=== PATIENT | male | born 1955 | race Caucasian/White ===

== ENCOUNTER 2019-07-18 18:07 | Inpatient (IN) | payer OTHER ==
[~2019-07-18] VITALS: Ht 185.4 cm; Wt 78.6 kg
[2019-07-18 18:08] VITALS: BP 106/67
[2019-07-18 18:41] LABS: HEMATOCRIT 35.2 % (42.0-52.0); HEMOGLOBIN 11.8 gm/dL (14.0-18.0); MCH 33.4 pg (26.0-34.0); MCHC 33.5 g/dL (28.0-37.0); MCV 99.7 fL (80.0-100.0); PLATELET COUNT 291 thou/uL (150-400); RBC 3.53 mil/uL (4.50-6.00); RDW 14.4 % (10.5-14.5)
[2019-07-18 18:54] LABS: ANION GAP 7 mmol/L (7-16); BUN 23 mg/dL (7-18); CALCIUM 9.6 mg/dL (8.5-10.1); CHLORIDE 102 mmol/L (98-107); CO2 29 mmol/L (21-32); CREATININE 1.2 mg/dL (0.7-1.3); GLUCOSE 124 mg/dL (74-106); POTASSIUM 3.7 mmol/L (3.5-5.1); SODIUM 138 mmol/L (136-145)
[2019-07-18] MEDS ORDERED: NEURONTIN 300M300 M2 PO (18:59)
[2019-07-18 19:00] LABS: ALBUMIN 3.3 g/dL (3.4-5.0); SALICYLATE < 2.8 mg/dL (2.8-20.0); SGOT 35 U/L (15-37); SGPT 30 U/L (30-65); TOTAL BILIRUBIN 0.3 mg/dL (<0.1-1.0); TOTAL PROTEIN 6.7 g/dL (6.4-8.2)
[2019-07-18] MEDS ORDERED: MAGNESIUM400 MG PO (19:00)
[2019-07-18] MEDS ORDERED: SUPER THERAVIT1 EACH PO (19:00)
[2019-07-18] MEDS ORDERED: DIVALPROEX SOD500 MG PO (19:00)
[2019-07-18] MEDS ORDERED: XARELTO20 MG PO (19:01)
[2019-07-18] MEDS ORDERED: BACLOFEN 10MG T10 MG PO (19:01)
[2019-07-18] MEDS ORDERED: CARDIZEM SR 60M60 MG PO (19:01)
[2019-07-18] MEDS ORDERED: TAMSULOSIN HCL0.4 MG PO (19:01)
[2019-07-18] MEDS ORDERED: GEODON40 MG PO (19:03)
[2019-07-18 19:18] LABS: URINE BILIRUBIN NEGATIVE (Negative); URINE BLOOD NEGATIVE (Negative); URINE CLARITY CLEAR; URINE COLOR YELLOW; URINE GLUCOSE-RANDOM* NEGATIVE (Negative); URINE KETONES TRACE (Negative); URINE LEUKOCYTES-REFLEX NEGATIVE (Negative); URINE NITRITE-REFLEX NEGATIVE (Negative); URINE PROTEIN (DIPSTICK) NEGATIVE (Negative); URINE UROBILINOGEN 0.2 E.U./dl (0.2-1.0)
[2019-07-18 19:25] LABS: AMP/METHAMP Negative (Negative); BARBITURATES Negative (Negative); BENZODIAZEPINES Negative (Negative); COCAINE Negative (Negative); METHADONE Negative (Negative); OPIATES Negative (Negative); PCP Negative (Negative)
[2019-07-18 19:33] LABS: ABSOLUTE NEUTROPHILS 3.4 thou/uL (1.4-8.2); ANISOCYTOSIS 1+
[2019-07-18 19:58] VITALS: BP 95/58
[2019-07-18] MEDS ORDERED: ARTIFICIAL TEAR15 M2 EA. EYE (20:50)
[2019-07-18] MEDS ORDERED: DIVALPROEX SOD250 MG PO (20:51)
[2019-07-18] MEDS ORDERED: GEODON20 MG PO (20:54)
[2019-07-18] MEDS ORDERED: TYLENOL325 MG PO (20:55)
[2019-07-18] MEDS ORDERED: NASAL SPRAY88 ML NASAL (20:56)
[2019-07-18] MEDS ORDERED: ZYPREXA 10 MG T10 MG PO (20:57)
--- NOTE | 2019-07-18 22:55 | NUR ---
Patient admitted from [facility] ED where he was medically cleared for admission to [facility] unit. Patient arrived to unit from ED by wheelchair. Patient agitated, confused, frustrated, irritable. Patient presents with suspicious appearance. Alert and oriented to person only. Confused and forgetful. Patient repetitive, asking the same questions. Patient demanding for a TV to be delivered to his room. Shown the dayroom where he is able to watch TV. States that he needs one in his room "now!". Patient stating that he will not have a roomate or he will move. Making multiple complaints about his room. Required re-direction several times on current location. Patient then stood at the nurses station door, blocking staff from entering and exiting nurses station. Very difficult to re-direct and stood there for some time. Patient then started to fixate on his personal belongings. Patient did arrive with 2 very large clear trash bags, one large suitcase and one round laundry basket with shoes. Patient demanding all his belongings. Nurse explained several times that personal belongings need to be inventoried before he is allowed to have them. Patient argumentative. Patient states that he will be living here for 1 year, "like I did that other place". Patient not able to remember current location but did remember nurse by first name. Patient took HS medication whole without difficulty. Patient able to use the bathroom, continent of bladder. Patient denies pain or discomfort. Patient then observed ambulating about the halls in his underwear. Re-directed back to his room and informed that he needs to wear pants when out of room. Patient then replied that he heard "Ina" calling for him. He was not able to answer who Ina is. Verbal consent obtained from Miles Dixon, guardian, over the phone. Admission orders obtained from Dr. Aguilar on behalf of Dr. Dias. Patient has been able to retire to bed and appears to be resting quietly at this time. PRN medication available for behaviors which has not been needed at this time. Per medical records: Patient was hospitalized after he was found on 02/20/19 in his kitchen lying face down in water. EMS was called by manager ship where patient lived alone. Multiple tiny sized alcohol bottles were found around him at that time. Patient was found to have facial fractures, multiple intraventricular hemorrhage and subarachnoid hemorrhage. Patient did have an episode of SVT in February 2019 which is why he is currently prescribed Cardizem daily. On 02/25/2019, he underwent a craniotomy for subdural hematoma. State appointed guardianship hearing was completed on 04/18/19. He was then [facility] to [facility] on 05/04/19. On 05/28/19, patient complained of sharp chest pain and was transferred to [facility] via EMS where he was diagnosed with pulmonary embolism in left base. Patient currently prescribed Xarelto daily. Behaviors leading to admission per medical record: Patient has been displaying increased agitation at [facility]. Appears agitation and aggressive behaviors were being treated with Zyprexa IM/PO. Patient "yelling and cursing at staff, raising his hand as if he was going to punch nurse". "Patient kicked a hole in his bathroom door". Appears patient was attempting to wander in and out of other patients rooms, and when he was re-directed, he became increasingly aggressive. "Patient started kicking a closet door in the hallway and cracked the door". Patient displayed exit seeking behaviors at previous facility, "kicking and pulling on the doors aggressively". "Cursing at staff and inappropriately approaching staff".
--- NOTE | 2019-07-18 23:29 | EKG ---
[facility] [place] [address] ELECTROCARDIOGRAM REPORT Name: ANA PETTY Room #: [facility]- ADM IN M.R.#: [id number] Admission: 07/18/19 Attend Phys: Jaison Dias DO Discharge: Date of : 57 Report #: [id number] THIS REPORT FOR: cc: Luis Mckeon MD, Shynda F. MD Couchonnal, Luis F. MD ~ THIS REPORT FOR: //name// [facility] ED Test Date: 2019-07-18 Test Time: 18:52:54 Pat Name: ANA PETTY Department: Room: [facility] Gender: M Mainspring Winder And Oiler: sourav : 1955 Requested By: Judy Bass Order Number: [id number] MD: Bret Mirza Measurements Intervals [place] Rate: 66 P: 51 CT: 194 QRS: 35 QRSD: 90 T: 46 QT: 404 QTc: 424 Interpretive Statements Sinus rhythm Abnormal R-wave progression, early transition No previous ECG available for comparison Electronically Signed On 07-18-2019 23:28:17 CDT by Bret Mirza [email or web address] <ELECTRONICALLY SIGNED> By: Bret Mirza MD 07/18/19 2328 51 51 Bret Miraz MD /EPI
[2019-07-19 08:57] VITALS: BP 90/62
--- NOTE | 2019-07-19 10:06 | NUR ---
0700 ASSUMED CARE OF PATIENT, PATIENT WALKING THE CHAKRABORTY AT THAT TIME. 0820 PATIENT SITTING IN CHAIR IN DAYROOM EATING BREAKFAST. PATIENT STATES "SOMEONE TOOK A BITE OF MY SAUSAGE AND I DO NOT KNOW WHY THEY WOULD DO THAT". IN ROOM DINING SERVER SETS UP HIS CEREAL FOR HIM TO EAT. PATIENT TAKES MEDICATION WITHOUT DIFFICULTY. PATIENT IS CONFUSED, CALM AND COOPERATIVE. WILL CONTUE TO OBSERVE.
--- NOTE | 2019-07-19 11:50 | NUR ---
MAXIMILIANO spoke leoncio Aquino Legal Guardian who is an attorney law clerk. Due to pervasive mental illness and alcohol abuse pt does not ahev any famiylw ho are willing to assit. Pt is at [facility] and is expected to go back there once his medication and mood and behvaior is stable. Pt will d/c from there to an approapite level of care. Maximiliano also spoke with his SW at [facility] [phone] fax [phone] and she assisted with intake assessmnet and TP. MAXIMILIANO then spoke with his disability case manager Amara Hinkle from [facility] who will help with d/c plannig to [phone].
--- NOTE | 2019-07-19 12:27 | NUR ---
No RT group d/t COVID19 precautions. STEEL DETAILER met 1;1 with patient for aproximately 35 minutes. Patient provided answers to recreation assessment and did so in a pleasant mood. Patient then worked a puzzle with STEEL DETAILER in his room using a bedside tray. Patient was unable to piece any of the puzzle together but was able to engage in constructive conversation. Patient then became focused on searching for his rental vehicle. He was redirected to his lunch tray successfully. Thirty minutes following lunch, patient approached the nurses station stating, "can someone come clean up room 523? there are puzzles everywhere." Patient was unable to recall 1;1 with STEEL DETAILER but recalled meeting therapist.
--- NOTE | 2019-07-19 18:44 | NUR ---
PATIENT TO NURING STATION CO WANTING TO GO OUT TO MEET A FRIEND AND PAY HIM MONEY. PATIENT IS CONFUSED AND AND FORGETFUL WITH SOME INCREASED AGITATION NOTED. PATIENT DOES NOT PROCESS WHAT IS BEING SAID TO HIM . WILL REPORT OFF TO NEXT SHIFT.
[2019-07-19 19:56] VITALS: BP 108/64
--- NOTE | 2019-07-20 06:09 | NUR ---
Pt. rested quietly at intervals during the night when checked on during frequent rounds. Cooperative with cares. Pt. had a bloody nose this am which stopped quickly with ice pack and pressure. No c/o pain. Up ad emely.
[2019-07-20 08:14] VITALS: BP 122/71
--- NOTE | 2019-07-20 09:26 | H ---
[facility] [place] [address] HISTORY AND PHYSICAL Name: ANA PETTY Room #: 523B-B ADM IN M.R.#: [id number] Admission: 07/18/19 Attend Phys: Jaison Dias DO Discharge: Date of : 57 Report #: [id number] THIS REPORT FOR: cc: Luis Mckeon MD, Shynda F. MD Kerstein, Andrew H. DO ~ CC: Jaison Mckeon DATE OF SERVICE: 07/18/2019 INPATIENT PSYCHIATRIC EVALUATION ATTENDING PHYSICIAN: Jaison Dias DO SUB ASSEMBLY TEAM WORKER: Manny Cobb MD REASON FOR ADMISSION: Aggression and threatening behavior at [facility]. SOURCES OF INFORMATION: Interview with the patient, discussion with nursing and therapy staff over the phone, telephone discussion with his guardian, John Goldsmith and interview with the patient. HISTORY OF PRESENT ILLNESS: This is a 64-year-old male, currently residing at the [facility] in [place], [place]. The patient was sent to us from such facility for self-harm or harm to others, punching staff, history of dementia. The patient had had several incidents of concern at the sending facility including, on July 15, agitated, threatening staff and other residents to be in the shift. The patient was attempting to go into another patient's room and staff said he could not go in there, the patient started kicking the closet door in the hallway and cracked the door. The patient was redirected back to room, but upset with staff. The patient came out of room after an hour; at that time, the patient started cursing and threatening staff. RN was called. Evidently, EMS came into the [place] [employer]. He was sent to ER, who sent him back without admission. The next day, on the , the patient was yelling, cursing staff and raising his hand as he was going to punch a nurse. Additional history, in February 2019, the patient was found down in his kitchen with water around him reportedly due to fall. He suffered traumatic brain injury with facial and cranial fractures. Craniotomy and baldemar hole evacuation was done due to subarachnoid hemorrhage on 02/25/2019 that was done for subdural hematoma and a subarachnoid hemorrhage. The patient had been admitted to the Emergency Room on 02/20/2019. He was admitted to [facility] on 05/04/2019. [address] [address] HISTORY AND PHYSICAL Name: ANA PETTY Room #: 523B-B ADM IN [facility].#: [id number] Admission: 07/18/19 Attend Phys: Jaison Dias, Discharge: Date of : 57 Report #: [id number] PAST MEDICAL HISTORY: He went through alcohol withdrawal, acute kidney injury and rhabdomyolysis, all medically admitted. He also had a history of SVT. MEDICATION HISTORY: He has been treated with ziprasidone 60 mg 3 times daily, Depakote 500 mg 2 times daily and 1000 mg at bedtime, olanzapine p.r.n. for anxiety. SOCIAL HISTORY: , has a stepdaughter. The patient lives alone in an apartment in [place]. He worked part-time in [employer]. 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 No noted tobacco or substance use history. Interestingly, when he had neuropsych testing in May looked down for much of the session he was easily irritated by difficult items, did not answer some questions. 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 It looks like at [facility] he was examined by a neuropsychologist. There was a SLUMS in this chart where he scored 16, the date on it is not specified. MEDICATIONS: At [place], baclofen 10 mg 3 times a day, diltiazem 120 mg twice daily, Depakote 500 mg twice daily, Neurontin 300 mg 4 times a day, multivitamin daily, Xarelto 15 mg twice a day for 20 days, then 20 mg thereafter. Flomax 0.4 mg p.o. daily, ziprasidone 20 mg 3 times a day. Additional past medical history, he was found to have a pulmonary embolism in I believe May 28, sharp chest pain, transferred to [facility]. CTA chest demonstrated PE in the left base, possible atelectasis, was started on anticoagulation. Treating physician, psychiatrist, Luis Pagan is the primary care physician at [facility]. On interview with the patient, he states he gets upset when people telling him what to do or sort with him. In general, he is a poor historian, difficult to get further history from our Emergency Room yesterday; a little more information was gleaned. home meds noted as: Geodon 40 mg 3 times a day, Xarelto 20 mg daily, tamsulosin 0.4 mg daily, diltiazem 120 mg p.o. daily, baclofen 10 mg t.i.d., Depakote 1000 mg at bedtime, multivitamin daily, magnesium oxide daily, Neurontin 300 mg p.o. 4 times a day. REVIEW OF SYSTEMS: From the ER: CONSTITUTIONAL: Negative for fever or chills. EYES: Negative for eye pain or visual change. HENT: Negative for rhinorrhea or sore throat. RESPIRATORY: Negative for cough or shortness of breath. CARDIOVASCULAR: Negative for chest pain or palpitations. GASTROINTESTINAL: Negative for abdominal pain. No nausea, vomiting or diarrhea. [facility] [address] [address] HISTORY AND PHYSICAL Name: ANA PETTY Room #: 523B-B ADM IN M.R.#: [id number] Admission: 07/18/19 Attend Phys: Jaison Dias DO Discharge: Date of : 57 Report #: [id number] GENITOURINARY: Negative for burning, urgency, frequency or hematuria. MUSCULOSKELETAL: Negative for back pain or muscle pain. SKIN: Negative for any rashes. NEUROLOGICAL: Negative for numbing, tingling or weakness. Otherwise, 10-point review of systems is negative. LABORATORY DATA: From the [facility] ER, sodium 138, potassium 3.7, chloride 102, bicarbonate 29, anion gap 7, BUN 23, creatinine 1.2, estimated GFR 61, glucose 124, calcium 9.6, total bilirubin 0.3, AST 35, ALT 30, alkaline phosphatase 53, total protein 6.7, albumin 3.3. White blood cell count 5.0, H and H 11.8 and 35.2, platelet count 291. Urine drug screen is negative. Urinalysis showed trace ketones, otherwise negative. I believe, a 12-lead EKG was done, result, QTc 424, QT 404, MI interval 194, interval rate 66, sinus rhythm. No neuro imaging was done. PHYSICAL EXAMINATION: VITAL SIGNS: Today, temperature 36.9, pulse 74, respirations 16, BP 90/60, O2 sat 97%. MUSCULOSKELETAL: Slow gait, leaning forward, bit unkempt. MENTAL STATUS EXAMINATION: This is a well-developed, unkempt male apparently stated age. Attention limited. Concentration limited. Speech is normal rate. Thought process is linear and goal directed. Thought content focused on the present. No psychomotor agitation. General: No psychomotor retardation. Mood and affect is congruent, constricted, variably irritable at times. No suicidal intent or plan. Briefly mentioned, killing his , though then he says literally in the same breath, but now she is okay. Denied auditory, visual, or tactile hallucinations. Memory known to be impaired. The patient was not cooperative with a [facility] mental status examination. Insight limited. Judgment impaired. Fund of knowledge is below average. FORMULATION: A 64-year-old male admitted to [facility] for threatening, agitated behavior. He is under the care of this guardianship. DIAGNOSES: At this time, major neurocognitive disorder due to multiple etiologies, namely cerebrovascular accident as well as alcohol with behavioral disturbance, severe medical comorbidities are numerous and include the following, history of pulmonary embolism, on anticoagulation. benign prostatic hypertrophy, history of subdural hematoma, history of SVT, history of facial bone fractures. PLAN: At this time, the patient was admitted to Geriatric Psychiatry. Evaluate, stabilize, obtain collateral. With regards to his medications, I already made a few adjustments; however, Depakote will keep at 500 mg at 0900 and 3 times a day. We will keep it at 1000 mg at bedtime. I have a blood level [facility] [address] [place] [address] HISTORY AND PHYSICAL Name: ANA PETTY Room #: 523B-B [facility] IN M.R.#: [id number] Admission: 07/18/19 Attend Phys: Jaison Dias DO Discharge: Date of : 57 Report #: [id number] scheduled for 07/20/2019 early. Continue Xarelto 20 mg with dinner, Geodon will continue 60 mg at 7439-2033 and discontinue the Benadryl and 40 mg at bedtime. Continue gabapentin 300 mg 3 times a day. Continue diltiazem 120 mg twice per day, famotidine 20 mg daily, magnesium oxide 400 mg twice a day, tamsulosin 0.4 mg p.o. daily, Haldol p.r.n. Other house PRNs. STRENGTHS: He is insured. He has a guardian. 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 ESTIMATED LENGTH OF STAY: 10-14 days. Time spent on interview, review of records, evaluation, coordination of care is at least 60 minutes. <ELECTRONICALLY SIGNED> By: Jaison Dias DO 07/20/19 0926 [id number] [id number] Jaison Dias DO /nt
[2019-07-20 19:11] VITALS: BP 100/58
--- NOTE | 2019-07-20 23:29 | NUR ---
Assumed care of patient this pm shift. Patient was sleeping in his bedroom. Patient in good spirits, joking with rn. Patient has a piece of tissue in his nose due to picking his nose earlier and causing it to bleed. Patient denies hi/si. Patient denies pain. Patients assessment shows clear breath sounds, active bowel sounds, and s1 s2 heard with auscultation. Patient takes medications whole. Patient ambulates without assistance. We will continue to monitor.
[2019-07-21 07:42] VITALS: BP 99/50
[2019-07-21 09:49] VITALS: BP 99/50
--- NOTE | 2019-07-21 11:35 | NUR ---
No RT group d/t COVID19 precautions. Pt perseverating on getting his luggage- back and forth to room and nurses station. Music was being played in the day room. At one point he approached SUPERVISOR DUMPING requesting the music to be turned off and the tv to be turned on stating, "all of these old people are telling me that they want the tv on." When explained that they are listening to music patient replied, "I know the upper management around here and I will be talking to them." No participation.
--- NOTE | 2019-07-21 11:42 | NUR ---
1140 RESSUMMED CARE FROM OVERNIGHT SHIFT THIS AM, PATIENT IN DAY ROOM ASKING FOR WALLET AND IF HE WAS LEAVING TODAY. PATIENT WAS TOLD HE IS NOT LEAVING TODAY AND THAT HIS PERSONAL BELONGINGS ARE LOCKED IN A SAFE PLACE. PATIENTS ABDOMEN SOFT ROUND BOWEL SOUNDS PRESENT IN AL 4 QUADRANTS. PATIENT LUNGS CLEAR PATIENT DENIES SI/HI/AH/VH AT PRESENT. PATIENT IN DAY ROOM WAS DEMANDING THE REMOTE AND ARGUING WITH STAFF ABOUT THE TV. PATIENT HAS SOME CONFUSION AND LIKES TO STAND AT NURSES STATION. WILL CONTINUE TO MONITOR PATIENT FOR BEHAVIORS AND SAFETY.
--- NOTE | 2019-07-21 13:52 | NUR ---
MAXIMILIANO sent updates to jennifer
[2019-07-21 19:34] VITALS: BP 102/57
--- NOTE | 2019-07-22 04:48 | NUR ---
Assumed care of pt @ 1900. Pt was standing at nurses' station demanding that someone help him leave. Charge nurse explained that he is in a hospital and that as soon as we finished with report, we could answer his questions. Pt stormed off stating, "You'll see what happens tomorrow morning". Pt very confused, but took medications whole without difficulty. Ambulates the halls ad emely with steady gait. Isolated in room most of early evening. VSWNL. Health assessment with no abnormalities noted at present time. Denies SI/HI @ present time. Currently resting in bed with eyes closed. Will continue to monitor per protocol.
[2019-07-22 08:37] VITALS: BP 95/68
--- NOTE | 2019-07-22 11:13 | NUR ---
SW left a VM for Miles and offered to provide updates.
[2019-07-22 19:23] VITALS: BP 120/72
--- NOTE | 2019-07-22 19:51 | NUR ---
Assumed care at 0700. Pt. pleasant, cooperative, compliant with medications. Note his bed was adjusted up due to his long legs and too low of bed caused his back to hurt getting in and out of the bed. He ambulates without difficulty. No c/o pain. No SI/HI/AH/VH. No delusional content mentioned. He was not physically aggressive during day shift. He keeps to himself and does not socialize with peers. When he has requests he repeatedly asks the request over and over.
--- NOTE | 2019-07-23 03:10 | NUR ---
ASSUMED PT CARE AT 1900. PT TOOK PM MEDICATIONS WITH NO PROBLEM. BEEN RESTING IN BED SINCE START OF SHIFT. THIS NURSE NOTICED HE WAS AWAKE AROUND 0230, PT STATED HE WAS GETTING UP TO GO TO THE GYM. REORIENTED PT AND HE AGREED TO GO BACK TO SLEEP. WILL CONTINUE TO MONITOR THROUGHOUT THE NIGHT.
[2019-07-23 08:57] VITALS: BP 89/58
[2019-07-23 09:30] VITALS: BP 87/57
[2019-07-23 09:32] VITALS: BP 85/58
[2019-07-23 09:35] VITALS: BP 102/54
--- NOTE | 2019-07-23 14:51 | NUR ---
Up ambulating in unit without s/o distress. Reg, steady gait. Calm and cooperative t/o the morning, compliant with meds. Much more restless with multiple requests in afternoon to change temperature in room, go to liquor store, get his wallet out of security. Also accusing other pt of taking his lotion and calling other pt. names. Denies SI/HI. Does ask appropriate questions at times. Breath sounds clear t/o, bilaterally equal. Reg HR auscultated. Color pink with brisk capillary refill and palpable peripheral pulses. BP 80s/50 X 3 per BP machine despite good perfusion. Cuff BP per L arm per manual cuff 102/54. Feet slightly cool to touch. Independent with voiding. Active bowel sounds over soft, rounded abdomen.
[2019-07-23 23:59] VITALS: BP 102/54
--- NOTE | 2019-07-24 01:18 | NUR ---
Assumed care of patient this pm shift. Patient in mileu watching tv. Patient calm and cooperative. Patient denies pain. Patient denies hi/si. Patient is continent of bowl and bladder. Patient ambulates without assistance. Patient takes medications whole. Patients assessment shows clear breath sounds, active bowel sounds, and s1 s2 heard with auscultation. No behaviors seen at this time. We will continue to monitor.
[2019-07-24 08:23] VITALS: BP 79/47
[2019-07-24 09:40] VITALS: BP 96/62
--- NOTE | 2019-07-24 15:08 | NUR ---
ASSUMED CARE AT 0700 TODAY. PT. HAS REMAINED VERY NEEDY. HE IS AT THE NURSES STATION DOOR MOST OF THE DAY. HE OFTEN ASKS FOR THE PHONE. AT ONE POINT HE STATED HE WAS NOT TALKING TO HIS MOTHER STATED, HE HAD LIED SO HE COULD CONTINUE TO TALK TO THE PERSON ON THE OTHER END OF THE LINE. HE DID NOT STATE WHO THAT WAS. HE ALSO STATED HE DOES NOT HAVE ANY PHONE NUMBER OF HIS FAMILY ONLY FRIENDS. HE COMPLAINED HIS NEIGHBOR IN ROOM 524 WAS BOTHERING HIM IN HIS ROOM. HE WAS SHOWED THAT ROOM 524 IS CURRENTLY EMPTY. HE COULD NOT UNDERSTAND THAT. BUT HE ALSO CONTINUED TO SWEAR THERE WAS A PERSON IN THAT ROOM. (THE DOOR HAD BEEN LOCKED). HE TOOK ALL HIS MEDICATIONS WITHOUT PROBLEMS. HAS REMAINED DEPRESSED IN APPEARANCE BUT ANSWERS ALL QUESTIONS ASKED OF HIM.
[2019-07-24 19:54] VITALS: BP 116/60
--- NOTE | 2019-07-24 22:55 | NUR ---
Assumed care of patient this pm shift. Patient is confused about where he is at. Patient is calm and cooperative. RN explained to patient about the importance of getting medications balanced for optimal living. Patient was encouraged to communicate with all members of the team to better understand why he is here, as well as when he might tenatively go home. Patient is neat and clean. Patient is ambulatory. Patient is continent of bowel and bladder. Patient takes medications whole. Patients assessment shows clear breath sounds, active bowel sounds, and s1 s2 heard with auscultation. We will continue to monitor.
[2019-07-25 07:30] VITALS: BP 86/54
[2019-07-25 08:10] VITALS: BP 86/54
--- NOTE | 2019-07-25 08:38 | NUR ---
PT SITTING WITH THIS GROUP LEADER WAFER POLISHING THIS AM. PT STATED HIS GOAL WAS TO HAVE A GIRLFRIEND. PT NOT ASKING FOR HIS LUGGAGE OR HIS WALLET. PT TOOK AM MEDS WITHOUT ANY ISSUES. HE DID WANT TO KNOW WHAT THEY WAS FOR.
--- NOTE | 2019-07-25 11:41 | NUR ---
JIMENEZ called and spoke with Kari at [facility] to confirm the d/c for tomorrow. Jimenez then called and spoek with katiuska at [facility] and left a VM regarding the d/c tomorrow too.
--- NOTE | 2019-07-25 12:08 | NUR ---
Weekly RT Note: Patient present in milieu. He engages with staff and peers momentarily. He is often on a mission to gather items, rent a car, or get home but is easily redirected. Pt allows 1;1 interaction with SKETCHER each day d/t no groups as a precaution to COVID19. No behaviors are noted during interaction.
--- NOTE | 2019-07-25 13:58 | NUR ---
Sw met with pt for 1:1 and he was unable to recall why he is in the hospital, and what rehab he came from. He stated that he did rememebr but " didnt want to be negative". Howerver this pt canot remmeber and has been calm and compliant during his inpt psych. SW reported to him that he was likley going to d/c in the next 2 days. Pt was satisfied with this
--- NOTE | 2019-07-25 14:20 | NUR ---
PT RESTING WITH HEAD DOWN IN DINING AREA.
[2019-07-25 14:50] VITALS: BP 125/85
--- NOTE | 2019-07-25 16:05 | NUR ---
SW conifrmed that pt will likely d/c tomorrow. Per Precious- pending auh from [facility]. SW reported htis to nursing. Tentative time of 2pm has been reported .
[2019-07-25 19:58] VITALS: BP 102/68
[2019-07-25 20:45] VITALS: BP 102/68
[2019-07-25 23:03] VITALS: BP 120/78
--- NOTE | 2019-07-26 04:24 | NUR ---
Assumed pt care at 1900. Pt's A/OX3, forgetful. Compliant with meds and cares. Up ad emely w/o any problems. Denies SI/HI. VSS. No c/o pain on assessment. Continent of B&B. Pt checked on frequently and resting w/o distress noted at this time, will continue to monitor pt. Looking forward to dc today.
[2019-07-26 07:46] VITALS: BP 100/66
[2019-07-26] MEDS ORDERED: BACLOFEN 10MG T10 MG PO (09:58)
[2019-07-26] MEDS ORDERED: GUANFACINE HCL1 MG PO (09:59)
[2019-07-26] MEDS ORDERED: DILTIAZEM 24HR120 M1 PO (10:01)
[2019-07-26] MEDS ORDERED: DEPAKOTE500 MG PO ×2 (10:02→10:03)
[2019-07-26] MEDS ORDERED: ZIPRASIDONE HCL20 M1 PO ×2 (10:03→10:04)
[2019-07-26] MEDS ORDERED: PEPCID20 MG PO (10:04)
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
--- NOTE | 2019-07-26 11:58 | NUR ---
LANDSCAPING AND GROUNDSKEEPING LABORER met this patient and another male patient for small group. Patient was preoccupied with calling his before she flew to [place]. He was easily redirected when the other patient began talking about his travels. Patient confused but polite and helpful in offering solutions to the other patient.
[2019-07-26 19:28] VITALS: BP 117/71
--- NOTE | 2019-07-27 04:23 | NUR ---
Assumed care of pt @ 1900. Pt calm et cooperative this shift. Pt expressed disappointment that he did not get to discharge yesterday due to facility not picking him up. Took medications whole without difficulty. Isolated in room most of shift. Ambulates the halls ad emely with steady gait. VSWNL. Health assessment with no abnormalities noted at present time. Denies SI/HI @ present time. Currently resting in bed with eyes closed. Will continue to monitor per protocol.
[2019-07-27 08:40] VITALS: BP 98/65
--- NOTE | 2019-07-27 11:06 | NUR ---
PATIENT CARE ASSUMED AT 1900 THIS MORNING. PATIENT HAS BEEN CALM AND WAITING PATIENTLY TO DEPART - PATIENT VERY REPEATIOUS - ASKS SAME QUESTIONS. COMPREHENSION LIMITED. FIXATED ON CAR AND HIS WALLET. PATIENT UNAWARE OF SITUATION. SCHEDULED FOR DISCHARGE TODAY. MEDICATION COMPLIANT. AMBULATORY - APPETITE GOOD - GOOD NOT ANSWER WHERE HE WAS.
--- NOTE | 2019-07-27 12:56 | NUR ---
Jimenez called [facility] and Margarita in admisisons stated that [facility] had denied his admission- and wnated Dr dias to complete the peer to peer. The peer to peer appeal can only be done at [facility] with their nurses medical assistants phlebotomists. JIMENEZ and DR Dias called and spoke to pt's guardian twice and confirmed that it was ok to send this pt back to [facility] and let them file the appeal for the admission. JIMENEZ and Dr dias reported this to Director of [facility]. Dr dias told Margarita at [facility] that this sw was setting up the transportation for a 2 pm d/c. JIMENEZ printed off a new packet and faxed it. Confirmation of fax and the packet was left on the chart.
--- NOTE | 2019-07-27 14:15 | NUR ---
PATIENT TRANSPORTED TO FACILITY [facility]IA [facility]. BELONGINGS CHECKED OUT AND VERIFIED. WALLET PATIENT HAD BEEN SEEKING WAS NOT AT OUR FACILITY ON DISCHARGE. PACKET OF DOCUMENTATION GIVEN TO FARM EQUIPMENT SERVICE TECHNICIAN TO PROVIDE TO FACILITY ON ARRIVAL. PATIENT MEDICATIONS GIVEN DURING THE DAY AND MORNING. VITALS STABLE ON DISCHARGE - TWO CLEAR BAGS OF CLOTHING - ONE LARGE SUITCASE AND YELLOW BASKET OF CLOTHES TAKEN WITH PATIENT. DEPARTED AT 1410. FACILITY CONTACTED AT 1420 GIVEN REPORT -PATIENT WAS CALM - ALERT AND COOPERATIVE UPON DISCHARGE.
--- NOTE | 2019-07-28 23:14 | D ---
[facility] [place] [address] DISCHARGE SUMMARY Name: ANA PETTY Room #: 523B-B DIS IN M.R.#: [id number] Admission: 07/18/19 Attend Phys: Jaison Dias DO Discharge: 07/27/19 Date of : 57 Report #: [id number] THIS REPORT FOR: cc: Luis Mckeon MD, Shynda F. MD Kerstein, Andrew H. DO ~ THIS REPORT FOR: //name// CC: Jaison Mckeon DATE OF SERVICE: 07/27/2019 Discharge activity took greater than 45 minutes today. PRIMARY TEAM ATTENDING PHYSICIAN: Jaison Dias DO. FOREX TRADER AT THE TIME OF DISCHARGE: Marlon Henry M.D. 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 Other concerns for this patient, benign prostatic hypertrophy, on Flomax; history of pulmonary embolism as well, on Xarelto. DISCHARGE PLAN: Discharging to the [facility] in [place], [place]. He is involved in the TBI injury rehabilitation program there. Psychiatric and medical care to be performed by the receiving facility. DIET: Regular. ACTIVITY LEVEL: As tolerated. The patient does require 24/7 care and supervision. DISCHARGE MEDICATIONS: Include baclofen 10 mg p.o. q. 8 p.r.n. muscle spasm, guanfacine 0.5 mg p.o. b.i.d. for impulsivity, diltiazem 120 mg p.o. daily for hypertension, Depakote ER 1500 mg p.o. for mood stabilization. He is on ziprasidone 60 mg at 0900 and 12 noon and 40 mg p.o. at bedtime for psychosis, famotidine 20 mg p.o. daily for GERD. Other medications, he is continued on Neurontin 300 mg p.o. 4 times a day for pain, magnesium oxide 400 mg p.o. b.i.d., multivitamin 1 tab p.o. daily, tamsulosin 0.4 mg p.o. daily for BPH, Xarelto 20 mg p.o. daily with dinner due to his history of PE, p.r.n. nasal spray and Tylenol. LABORATORY DATA: Labs from this admission, CBC: H and H 11.8 and 35.2, white count 5.0, platelets 291 on 07/18/2019. Chemistry: Sodium 138, potassium 3.7, chloride 102, bicarbonate 29, anion gap 7, BUN 23, creatinine 1.2, estimated GFR [address] [address] DISCHARGE SUMMARY Name: ANA PETTY Room #: 523B-B DIS IN M.R.#: [id number] Admission: 07/18/19 Attend Phys: Jaison Dias DO Discharge: 07/27/19 Date of : 57 Report #: [id number], glucose 124, calcium 9.6. Total bilirubin 0.3, AST 35, ALT 30, alkaline phosphatase 53, total protein 6.7, albumin 3.3. Urinalysis done on 07/18/2019 was positive for trace ketones, otherwise negative. Toxicology screen at the time of admission was negative UDS. Depakote level was 101, even though it was borderline high, the patient was clinically not toxic and tolerating that well. Salicylate less than 2.8, acetaminophen level less than 2, serum alcohol less than 10. EKG from 07/18/2019 showed sinus rhythm, QTC 424, QT 404, AZ interval 194, normal rate of 66. REASON ON ADMISSION: Back on 07/18/2019, the patient was having increased agitation, combativeness, slamming at the doors, possibly slamming his hands on the door. HOSPITAL COURSE: The patient was admitted to Geriatric Psychiatry Unit. The patient was under [facility] conservatorship. His guardian is his energy attorney, John [place] who was contacted at the beginning of this admission. I elected to go ahead and increase his Depakote, get a repeat blood level. With regard to his Geodon, he is on a little bit of an unusual regimen in terms of the timing of it, but I left it be. He can continue to have some irritability, impulsivity, so I started guanfacine. We did have to keep him an extra day or so to watch his blood pressure, but even though it had dipped down in the 80s on a few occasions, he was up around 100 systolic level ____ acceptable. PHYSICAL EXAMINATION: VITAL SIGNS: At time of discharge, temperature 36.7, pulse wnl, respirations 18, BP 98/65, O2 sat 100%. MUSCULOSKELETAL: Normal gait and station. MENTAL STATUS EXAMINATION: This is a well-developed, fairly nourished, thin male, appearing at least stated age. Attention limited. Concentration limited. Speech is normal, rate, rhythm, tone. Thought process is linear and goal directed. Thought content focused on going to his parents' house to stay, poor awareness of his circumstances and deficits. No psychomotor agitation. No psychomotor retardation. Denied SI or HI. Denied auditory, visual, or tactile hallucinations. Memory noted to be impaired. Mood and affect were congruent and euthymic. The patient had been upset over the delay in discharge given that he was scheduled to discharge yesterday, Thursday. Fund of knowledge below average at this point. PROGNOSIS: For this patient is guarded given his history of alcoholism, subdural hematoma. He is already under guardianship. It should be noted as well that [place], [place] had denied further psychiatric admission and denied coverage for admission to [facility]. The position I [facility] [address] [place] [address] DISCHARGE SUMMARY Name: ANA PETTY Room #: 523B-B DIS IN M.R.#: [id number] Admission: 07/18/19 Attend Phys: Jaison Dias DO Discharge: 07/27/19 Date of : 57 Report #: [id number] took and his guardian took is the patient has a right to return there to complete the rehabilitation in adequate time to make a reentry or step down plans to the community and the patient was sent back to the [facility] today. greater than 45 minutes spent on discharghe activities today <ELECTRONICALLY SIGNED> By: Jaison Dias DO 07/28/19 2314 29 03 Jaison Dias DO /nt
== END 2019-07-27 14:20 | disposition left against medical advice (07) | DRG 884 ==
LOC: ER 18:07 → SBH 19:28 → EROBS 19:28 → SBH 19:28 → EROBS 19:28 → SBH 20:34
PROVIDERS: Physician Assistant; ADMIT Psychiatry & Neurology Psychiatry
DX: F01.51 Vascular dementia, unspecified severity, with behavioral disturbance (principal); I62.00 Nontraumatic subdural hemorrhage, unspecified; N40.0 Benign prostatic hyperplasia without lower urinary tract symptoms; Z86.711 Personal history of pulmonary embolism; Z79.899 Other long term (current) drug therapy
CPT/HCPCS: 10880

== ENCOUNTER 2019-08-04 03:28 | Inpatient (IN) | payer OTHER ==
[~2019-08-04] VITALS: Ht 175.3 cm; Wt 80.8 kg
[~2019-08-04 03:28] MED LIST: ARTIFICIAL TEAR15 M2 EA. EYE; BACLOFEN 10MG T10 MG PO; CARDIZEM SR 60M60 MG PO; DEPAKOTE500 MG PO; DILTIAZEM 24HR120 M1 PO; DIVALPROEX SOD250 MG PO; DIVALPROEX SOD500 MG PO; GEODON20 MG PO; GEODON40 MG PO; GUANFACINE HCL1 MG PO; MAGNESIUM400 MG PO; NASAL SPRAY88 ML NASAL; NEURONTIN 300M300 M2 PO; PEPCID20 MG PO; SUPER THERAVIT1 EACH PO; TAMSULOSIN HCL0.4 MG PO; TYLENOL325 MG PO; XARELTO20 MG PO; ZIPRASIDONE HCL20 M1 PO; ZYPREXA 10 MG T10 MG PO
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
[2019-08-04 07:28] VITALS: BP 111/83
--- NOTE | 2019-08-04 07:59 | NUR ---
I came on the unit and nurse Cecilia was attempting to give Nathan his medications. Nathan's tone of voice was angry and threatening. I interrupted and told him not to threaten Cecilia. He explained that he was trying to leave b/c "i have a date tongiht." Cecilia and I explained that he was not going to leave today. Nathan has problems remembering conversations, partially due to his brain injury. Nathan did take his meds. He later came and apologized to me and to nurse Brooks.
[2019-08-04 08:02] VITALS: BP 107/74
--- NOTE | 2019-08-04 12:34 | NUR ---
Up ambulating in halls with steady gait. Irritable and restless at times with multiple requests to go home, leave unit, go to the canteen, get on bus/train. Exit seeking. Alert to name only. States day is in 2000. Continues to be redirectable. Calm and compliant with meds. Occassionally yells at staff, but deesculates quickly. Breath sounds clear t/o. Reg HR auscultated. Color pink with brisk capillary refill and palpable peripheral pulses. No edema noted. Independent with voiding. States he had a BM yesterday. 1230 Continues to ambulate around unit. Restless. Spends alot of time at nursing station with frequent requests to leave.
--- NOTE | 2019-08-04 14:06 | NUR ---
Pt is a readmission and familiar to this SW. Sw completed the intake assesment and TP. Pt will d/c back to [facility]
[2019-08-04 19:26] VITALS: BP 81/53
--- NOTE | 2019-08-05 05:27 | NUR ---
Assumed care of pt @ 1900. Pt calm et cooperative this shift. Pt unable to take medications as pt was sedated during HS med pass et would not open eyes or mouth to take medications. Pt was still sedated during midnoc Lorazepam et did not receive this medication either. Socialized in dayroom with peers earlier in shift but retired early to room around 2014. Ambulates the halls ad emely with steady gait. VSWNL. Health assessment with no abnormalities noted at present time. Pt denies SI/HI @ present time. Currently still resting in bed with eyes closed. Will continue to monitor per protocol.
[2019-08-05 08:00] VITALS: BP 91/54
--- NOTE | 2019-08-05 08:15 | NUR ---
Late Note 08/04/19 approximately 0937. Isreal was working on the alarm system. Lv and another peer pushed on the doors at the time the alarms were being worked on. Lv and his peer eloped from the unit. Staff got Nathan and his peer to return to the unit without any difficulty.
--- NOTE | 2019-08-05 09:10 | NUR ---
MAXIMILIANO and Dr Dias called Miles 08/03 and it was decided that pt will need placement somewhere else. Miles stated that he did not know of any places that might be suitable for this pt, and that jennifer was working on finding placement. There was mention of [facility] in [place] but that would require some legal changes to his guardianship. 08/05/19 Maximiliano called jennifer and spopari Gaona and it was confirmed that they hoping this pt will go to [place].
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
--- NOTE | 2019-08-05 14:51 | NUR ---
Jimenez called Kari VIERA at [facility] and left a VM, this included that pt is expected to return to them as they are workign sameer complex d/c. But offered to help while he was here.
[2019-08-05 19:33] VITALS: BP 78/44
[2019-08-05 19:35] VITALS: BP 138/91
[2019-08-05 19:50] VITALS: BP 114/70; BP 138/91
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
--- NOTE | 2019-08-06 04:52 | NUR ---
08-05-19 care transfered at 191; 1949 Pt AAOx2, skin w/d, pt wanted to go to his car but needed his wallet; reassured pt that his car was back home, and his wallet was safe and secure here and it would be return to him when he is discharged. Received report from HEALTH INFORMATION SYSTEMS TECHNICIAN that b/p was low; Pt was cooperative with redireted back to room and removed his sweather, VS Left Brachial manual b/p 114/70, P 78, R 18, taken with pulse ox O2 Sat 97% RA RR even and non-laboredp; Right Brachial manual b/p 112/68, p 78. Radial and Pedal pulse strong and equal. Observed pt placing sweater back on and then asked for his wallet and became increasly obsessed with agitation elevated that he need his wallet before getting his care in the parking lot. Pt had zero difficulties taking medication. Pt denies pain and SI/HI. Zero acute distress noted.
[2019-08-06 07:10] VITALS: BP 107/71
--- NOTE | 2019-08-06 13:39 | NUR ---
Up ambulating around unit with multiple questions/demands at nursing station. Wants to leave, take the bus, get his wallet to buy presents for his and daughter. Alert and orientated to self only. Denies SI/HI adamantly. Does well when asked to "supervise" me shaving another pt. in day room. Sat quietly and gave appropriate suggestions. Conversant with other peers and staff during that time. Breath sounds clear t/o. Reg HR auscultated. Color pink with brisk capillary refill and palpable peripheral pulses. Independent with voiding. Active bowel sounds over soft, rounded abdomen. Independent with personal hygeine and shaving. 1345 Currently standing at nursing station. Quiet. No s/o distress.
--- NOTE | 2019-08-06 17:02 | NUR ---
SW attempted to meet with patient 1:1 in lieu of group due to COVID-19 restrictions. Patient was sleeping at the time of visit.
[2019-08-06 19:40] VITALS: BP 99/67
--- NOTE | 2019-08-07 05:23 | NUR ---
Assumed care of pt @ 1900. Pt calm et cooperative most of shift. Took medications only after telling patient that refusal to take his medications could compromise his discharge if the physician did not feel that he was following his care plan. Pt took medications whole without difficulty. Pt perseverating over discharge et when he is going to be able to see the doctor so that he can get his luggage et "get out of here".VSWNL. Health assessment with no abnormalities at present time. Pt denies SI/HI. Currently resting in bed with eyes closed. Will continue to monitor per protocol.
[2019-08-07 07:31] VITALS: BP 97/65
--- NOTE | 2019-08-07 09:18 | NUR ---
PATIENT CARE ASSUMED AT 0700 AM - PATIENT WAS UP ON UNIT - STATED HAD GOOD NIGHT SLEEP. PLEASANT AND CALM - TOOK MEDICATIONS WITHOUT INCIDENCE. MORNING APPROACHED STARTED TO GET RESTLESS - EASILY IRRITATED. REPEATEDLY ASKED TO LEAVE AND WANTED TO CALL FATHER TO PICK HIM UP - GRAVITATES AROUND NURSING STATION AND FIXATED ON LEAVING. GIVEN PRN ATIVAN ALONG WITH MORNING MEDICATIONS - CONFUSED - DOES NOT RETAIN WHAT IS CONVEYED TO HIM. ASKED TO USE PHONE TO CALL DAD SHORTLY AFTER 9AM. ADVISED PATIENT DISCHARGES THURSDAY THROUGH THURSDAY AND WOULD HAVE TO PROCESS DOCUMENTATION FOR DISCHARGE.
[2019-08-07 10:00] VITALS: BP 101/61
--- NOTE | 2019-08-07 10:05 | NUR ---
MAXIMILIANO faxed updates to [facility].
[2019-08-07 19:52] VITALS: BP 93/56
--- NOTE | 2019-08-07 23:38 | NUR ---
Care assumed of patient at 1915: Patient pacing the halls at start of shift. Exit seeking, asking for his boots, to get to the bus, where his car is. Repetitive but re-directable. Patient then started to demand a new room. Nurse attempted to speak with patient regarding that his roomate will be leaving within 24 hours. Patient became angry, quickly. Nurse then asked patient to allow time for nurse to look into changing his room. Patient then started to bang on glass at nurses station, kick the wall, yell at nurse using deragatory names, told nurse "you will get up and take care of my needs now!". Attempted to direct patient to dayroom to watch TV, work on puzzle, look at magazines. Patient stated "I'm not going to move from here until I have a new room!". Patient became louder and more threatening. Held up his hands as if he was making a choking core maker toward nurse. Offered snack, water. Asked to get his vital signs assessed. Not re-directable. Blocking entry to nurses station and refused to move, "you will just have to move me!". Security notified. Patient escorted to his room with staff assist x3 and IM Ativan PRN administered. Refused to take any PO medication at that time. Patient more calm after approximately 30 minutes. Alert and oriented to person only. Took HS medication whole without difficulty later in the shift. Declined HS snack. Patient confused and forgetful. Patient was able to fall asleep in his room without difficulty. Room not changed due to him resting quietly without further issue.
[2019-08-08 07:28] VITALS: BP 100/64
--- NOTE | 2019-08-08 09:27 | NUR ---
PATIENT CARE ASSUMED AT 0700 - PATIENT CALMER AND REDIRECTABLE. APPROACHED NURSING STATION AND WAS CONCERNED ABOUT PEER MAKING FALSE STATEMENTS ABOUT HIM. ASSURED PATIENT STAFF AWARE OF NON VALIDITY OF WHAT WAS SAID. ADVISED TO SIT AT DIFFERENT LOCATION AND AVOID INTERACTION WITH PATIENT. APPEARS ADVICE HEEDED. PATIENT MOOD STABILIZED AND NO AGITATION DETECTED. GIVEN IM OF ATIVAN LAST NIGHT FOR ESCALATION IN BEHAVIOR. NON CONFRONTATIONAL THIS MORNING. CURRENTLY MEANDERING AROUND UNIT BUT CALM.
--- NOTE | 2019-08-08 15:32 | NUR ---
SW met with patient 1:1. Patient expressed his frustration with having been on the [facility] "for 3 weeks" and no discharge in sight. SW was able to help patient express his frustration and circumvent his anger. SW left patient quietly enjoying some ice cream in the dayroom at snack time.
--- NOTE | 2019-08-08 15:34 | NUR ---
MAXIMILIANO received a call from Kari with [facility] who informed MAXIMILIANO they are trying to get patient placed at [facility] in [place], [place] . MAXIMILIANO informed MAXIMILIANO Pierce would provide this information to MAXIMILIANO Hernandez.
[2019-08-08 19:31] VITALS: BP 98/58
[2019-08-08 21:15] VITALS: BP 98/58
--- NOTE | 2019-08-09 00:45 | NUR ---
PATIENT WAS SLEEPING IN HIS BED WHEN THIS NURSE CAME ON SHIFT AT 1900. HE WAS SLEEPING VERY SOUNDLY AND WAS VERY IRRITABLE WHEN AWOKEN. PATIENT WAS TOO IRRITABLE AND SEDATED TO TAKE HS MEDS BUT HE DID TAKE THEM AT 2350 WHEN HE AWOKE. HE HAD SLEPT SO HARD HE HAD URINATED AND SOAKED HIS BRIEF AND BED. PT CLEANED UP AND NEW CLOTHES AND BED CHANGE DONE. PT TOOK HIS MEDS WHOLE WITH WATER AND USED RESTROOM AND WENT BACK TO BED. HE WAS CALM AND COOPERATIVE AND SMILING AT THAT TIME. PT IS SLEEPING. BED IN LOW POSITION AND ROUTINE ROUNDS TO ASSESS PT STATUS AND SAFETY. PATIENT DENIES PAIN. PATIENT DID REPORT HAVING A BM 5/4. WILL CONTINUE TO MONITOR.
[2019-08-09 07:30] VITALS: BP 99/63
--- NOTE | 2019-08-09 09:19 | NUR ---
0700 ASSUMED CARE OF PATIENT. 0730 PATIENT UP AMBULATING IN CHAKRABORTY AT THAT TIME. PATIENT EAT BREAKFAST WELL, MEDICATION TAKEN WELL WITHOUT DIFFICULTY. PATIENT CONFUSED AND REQUESTING HIS BOOTS. PATIENT UP WANDERING CHAKRABORTY AFTER BREAKFAST. WILL CONTINUE TO OBSERVE.
[2019-08-09 10:15] VITALS: BP 96/66
--- NOTE | 2019-08-09 10:26 | NUR ---
PATIENT WANDERING AND ASKING FOR PERSONAL ITEMS TO GO HOME. REED POLISHER TALK WITH PATIENT AND PATIENT WANTED TO KNOW WHAT PLAN WAS IN PLACE TO GO HOME. REED POLISHER SUGGESTED THAT PATIENT BE CALM WITHOUT TRYING TO ELOPE OR GOING TO EXIT DOORS AND REED POLISHER WOULD LET DR KNOW THAT PATIENT WANTS TO SPEAK WITH HIM. PATIENT THEN STATED "DON'T TELL HIM IM ACTING UP SO I CAN GO HOME". WHEN PATIENT COMES TO NURSES STATION AND STARTS TO ASK FOR PERSONAL ITEMS REED POLISHER REMINDS PATIENT OF THE PLAN AND PATIENT AGREES AND WALKS AWAY. PATIENT IS CONFUSED AND FORGETFUL. LUNG SOUNDS CLEAR, ACTIVE BS. NO C/O PAIN. WILL CONTINUE TO OBSERVE.
--- NOTE | 2019-08-09 11:25 | NUR ---
Sw contacted [facility] and they would consider this pt. Sw sent referral packet.
--- NOTE | 2019-08-09 11:38 | NUR ---
MAXIMILIANO also spoke with Amara at [facility] and discussed pt's d/c plans. [facility] and she is lisandro [facility] will cover his stay here unitl alternate placmeent is found. Amara is going to provide this worker witha list of alternate placment to try. [phone]
--- NOTE | 2019-08-09 17:01 | NUR ---
1600 PATIENT ATEMPTING TO COAX RECREATIONAL THERAPIST INTO USING HER BADGE TO OPEN THE DOOR SO HE CAN GET OUT. PATIENT TOLD HER "YOU CAN JUST SAY I EXCAPED". WOODWIND INSTRUMENT REPAIRER REDIRECTED PATIENT TO DAYROOM ATTEMPTED TO EXPLAIN TO PATIENT HE IS A PATIENT AND CAN NOT GO HOME TILL DC'D. PATIENT ASKED WOODWIND INSTRUMENT REPAIRER TO COME SIT WITH HIM AND TALK. WOODWIND INSTRUMENT REPAIRER SITS TO TALK WITH PATIENT AND PATIENT ASKS WOODWIND INSTRUMENT REPAIRER TO NOT REPORT HIS ACTIONS TO THE DR. PATIENT STATES "THIS IS NOT FAIR TO KEEP ME AGAINST MY WILL". PATIENT ASKS TO SHAVE WOODWIND INSTRUMENT REPAIRER WITH PATIENT IN ROOM WHITE PATIENT SHAVES. PATIENT STARTED TO GET UPSET WITH WOODWIND INSTRUMENT REPAIRER PRESENT BUT THE SAYS IM SORRY. AFTER SHAVING PATIENT TO DAYROOM FOR DINNER. WILL CONTINUE TO OBSERVE.
[2019-08-09 20:01] VITALS: BP 92/57
--- NOTE | 2019-08-10 05:30 | NUR ---
Assumed care of pt @ 1900. Pt calm et cooperative this shift. Pt seemed less preoccupied with getting to his vehicle this shift. Took medications whole without difficulty. Socialized in dayroom with peers until HS. Ambulates the halls ad emely with steady gait. VSWNL. Health assessment with no abnormalities noted at present time. Denies SI/HI. Currently resting in bed with eyes closed. Will continue to monitor per protocol.
[2019-08-10 07:26] VITALS: BP 158/92
--- NOTE | 2019-08-10 09:05 | NUR ---
0700 ASSUMED CARE OF PATIENT, PATIENT ASLEEP AT THAT TIME. 0 PATIENT TO NURSES STATION ASKING WHERE HIS IS. OPEN HEARTH FURNACE OPERATOR ORIENTED PATIENT TO PLACE, PATIENT CALM AND CONTINUES ON TO DAYROOM. MEDICATIONS TAKEN WHOLE WITHOUT DIFFICULTY. WILL CONTINUE TO MONITOR
--- NOTE | 2019-08-10 12:18 | NUR ---
PATIENT IS EASILY REDIRECTED WHEN CONFUSED. PATIENT WANTING TO PURCHASE A CAR OVER THE PHONE ASKING FOR HIS CREDIT CARD. PATIENT STARTS TO GET UPSET AND RAISE VOICE, PATIENT REMINDED OF VERBAL PLAN MADE YESTERDAY ABOUT HIS BEHAVIOR AND APOLOGIZES TO RESEARCH PHYSIOLOGIST. PATIENT TO DAYROOM AND SITS IN CHAIR. WILL CONTINUE TO OBSERVE
--- NOTE | 2019-08-10 14:28 | NUR ---
Jimenez called and left a VM with Sanam at [facility] requesting f/u information regarding d/c plan and times.
--- NOTE | 2019-08-10 18:03 | NUR ---
PATIENT AMBULATING IN HALLS WITH OTHER PATIENTS. PATIENT EXIT SEEKING WITH OTHERS AND INSISTING TO GO INTO ANOTHER PATIENTS ROOM TO LOOK FOR KEYS. STATES " HE NEEDS TO FIND HIS KEYS IN HIS ROOM AND WE NEED TO GET IN THE ROOM NOW" AFTER TALKING TO PATIENT FOR A FEW MIN PATIENT GIVES UP IN HIS NEEDING TO GET INTO THE ROOM. PATIENT TELLING ANOTHER PATIENT THAT HE IS TALKING ALL CRAZY AND TO STOP BEING SO STUPID. EPOXY FABRICATION SUPERVISOR ASKED PATIENT TO BE NICE AND PATIENT APOLOGIZES. WILL CONTINU TO OBSERVE.
[2019-08-10 19:12] VITALS: BP 99/64
[2019-08-10 20:00] VITALS: BP 99/64
--- NOTE | 2019-08-10 23:50 | NUR ---
WHEN I CAME THRU UNIT DOOR THIS EVENING TO REPORT TO WORK, PT WAS ON OTHER SIDE OF DOOR AND HURRIEDLY TRIED TO RUN THRU DOOR I CAME IN. I PUT MY ARM OUT AND PLACED IT ON HIS CHEST TO STOP HIM. HE ASKED ME WHY I HAD TO DO THAT, THAT HE WAS WANTING TO LEAVE. I EXPLAINED THAT HE NEEDED TO STAY ON THE UNIT UNTIL THE DOCTOR SAID HE COULD LEAVE. HE TURNED AND WALKED TO THE DINING ROOM AND REMAINED CALM. THEN 30 MINUTES LATER HE CAME TO NURSE STATION AND ASKED TO USE THE PHONE TO CALL HIS (EX) CHARLES. I EXPLAINED THAT SHE TOLD US THAT SHE WAS BUSY AND WOULD CALL WHEN SHE HAD TIME BUT SHE WAS NOT TAKING CALLS FROM HERE. HE WAS VERY UPSET AND STARTED TO ESCALATE STATING HE WAS ANGRY AND WANTED TO GET OUT AND GO HURT HIS EX FOR NOT TAKING HIS CALLS. HE THEN RETRACTED THAT AND SAID THAT HE WOULD NOT HURT HER OR HIMSELF. WE TALKED FOR A BIT AND I VALIDATED HIS FEELINGS BY LISTENING. I OFFERED TO CALL HIS ATTOURGABRIEL AND HE SAID NO. HE THINKS CHARLES AND [facility] ARE HAVING AN AFFAIR. I TOLD PT THAT MAYBE CHARLES IS WANTING TO GO ON WITH HER LIFE AND REMINDED HIM THAT THEY ARE . WE TALKED ABOUT THE INABILITY TO CONTROL OTHERS BUT THAT HE CAN ONLY CONTROL HIMSELF. EXPLAINED THAT HE NEEDS TO WORK ON GETTING BETTER AND MAKING A FUTURE FOR HIMSELF AFTER TREATMENT. HE AGREED AND STATED CALMLY, "IT JUST REALLY HURTS TO THINK THAT CHARLES DOESN'T WANT TO BE THERE FOR ME ANYMORE." HE WENT AND SAT IN THE DINING ROOM AND ATE A SNACK AND THEN WENT TO BED. HE THANKED ME FOR TALKING WITH HIM. HE TOOK HIS HS MEDS THEN WITHOUT AN ISSUE AND WAS PLEASANT AND COOPERATIVE THE REST OF EVENING. I DID GIVE HIM LORAZEPAM 0.5MG WITH HIS HS MEDS SINCE HE WAS SO UPSET. PATIENT IS SLEEPING AT THIS TIME. HE DID ASK ME IF I WOULD WASH HIS SWEATER FOR HIM AND THANKED ME AGAIN. ROUTINE ROUNDING FOR STATUS AND SAFETY ASSESMENT.
--- NOTE | 2019-08-11 09:57 | NUR ---
DID TAKE MAJORITY OF AM MEDICATIONS WITH PROMPTING AND ENCOURAGEMENT STATED SEVERAL TIMES "I DON'T TAKE ALL OF THOSE ARE YOU SURE THEY ARE FOR ME" ORIENTED TO NAME ONLY UNABLE TO ID M MYLENE STATING "I DON'T REALLY PAY ATTENTION UNLESS I'M IN BUSINESS" IDENTIFIES YEAR 2010 AND LOCATION "[facility]" DENIES SI/SH. SPEECH PRESSURED AND DIFFICULT TO FOLLOW AT TIMES-APPROACHES DESK FREQUENTLY AND HAS MULTIPLE CONCERNS/QUESTIONS-WHEN REQUESTED BY STAFF TO WAIT UNTIL CURRENT PHONE CONVERSATION COMPLETE -REAPPROACHED APPROX. 2-3 MINUTES LATER AND FOLLOWED THIS RN UP AND DOWN HALLWAY FOR 10-15 MINUTES REPEATING QUESTIONS SEVERAL DIFFERENT TIMES.
--- NOTE | 2019-08-11 12:51 | NUR ---
JIMENEZ called and left a VM with Miles about the d/c plans. Also scanned and faxed the letter of recomendation that was provided buy Dr Dias justifying an out of state placement. Jimenez then called and spoke with katiuska at [facility], to provide an update.
--- NOTE | 2019-08-11 13:24 | NUR ---
Jimenez spoke with Amara from [facility] and she confiremd that placement in [place] was necessary becasue none in [place] was found. Jimenez then spoke with Sanam from [facility] as she was returning Dr Dias's call, she confimred that the letter was accurate too.
--- NOTE | 2019-08-11 13:36 | NUR ---
RT progress note- Nathan is very discharge focused and is often difficult to engage in leisure because of this. Distraction methods such as music (rock n roll) have been beneficial to him. Recently he has begun to make requests of staff to use their name badges to let him off the unit, etc.
[2019-08-11 19:38] VITALS: BP 96/57
--- NOTE | 2019-08-12 05:31 | NUR ---
Assumed care of pt @ 1900. Pt calm et mostly cooperative this shift. Pt had episode of irritability during HS medication pass due to nosebleed after taking meds. Ambulates the halls ad emely with steady gait. Isolated in room most of shift but came out to dayroom in the bicycle designer hours to stand at nursing station. When asked if he needed anything, pt states that he is looking for his tennis shoes and the door "to get out of this place". Informed pt that it was 0300 et that he needed to go back to sleep. Pt was resistant at first but eventually went back to bed. VSWNL. Health assessment with no abnormalities noted at present time. Denies SI/HI. Currently resting in bed with eyes closed. Will continue to monitor per protocol.
[2019-08-12 08:27] VITALS: BP 121/88
--- NOTE | 2019-08-12 12:29 | NUR ---
CONTINUES TO BE ORIENTED TO PERSON ONLY. BELIEVES HE IS AT "[facility]" AND IS ASKING REPEATDLY FOR CAR AND BILLFOLD. BECOMES FRUSTRATED WITH STAFF ATTEMPTS TO REDIRECT/REASSURE "I'M JUST GOING TO GET OUT OF HERE WITHOUT YOU" EXIT SEEKING. IDENTIFIES GOAL OF DAY TO "GET TO THE CAR RENTAL OFFICE" DENIES C/O PAIN STATING "I AM FIINE I AM OT HERE FOR ME" GAIT STEADY WITHOUT ASSISTIVE DEVICES.
--- NOTE | 2019-08-12 14:04 | NUR ---
Sw sent updated meds list to [facility] and hodaey report that they have to POC ready to go
[2019-08-12 19:38] VITALS: BP 108/65
--- NOTE | 2019-08-12 20:55 | NUR ---
Pt. is up ambulating ad emely. Gait is slow and steady. He interacts with a blank stare. No emotions shown. He took medicine in ice cream. Day nurse reports that she had "trouble" with him taking morning meds and she had success putting them in yogurt. Pt. ate all of ice cream without any choking or coughing. He is alert and oriented x 1. At times he is able to state that he is at [place], but not consistently. He stated that the year was 2011. He denies pain and no signs or symptoms of pain or distress noted.
[2019-08-12 22:25] VITALS: BP 108/65
--- NOTE | 2019-08-13 06:29 | NUR ---
Pt. slept well throughout night without complaints. Took po morning meds whole with water. No coughing or choking noted after swallowing. Pt. denies any needs. No signs or symptoms of distress noted.
[2019-08-13 07:39] VITALS: BP 117/81
--- NOTE | 2019-08-13 11:30 | NUR ---
Assumed care at 0700. During increased activity in the dayroom pt. wanted to interfer. He was using inappropriate language with a SHIP PURSER and later this RN. He continually repeats asking where his car is, when is he going home, where are his things. He was adamant about not wanting a roommate. He was cautioned about not interfering in milieu with other patients.
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
--- NOTE | 2019-08-13 16:39 | NUR ---
Patient continues to ask about his car/belongings/when is he going home? He is frequently redirected to look at and read the paper that summarizes the questions he keeps asking about. He asks different staff to give him the phone as he wants to talk with his Ex- who does not want to talk with him. He took about an hour's nap after the PRN Ativan was given and was less verbally abusive.
[2019-08-13 19:32] VITALS: BP 114/73
--- NOTE | 2019-08-13 19:55 | NUR ---
Pt. is up ambulating in hallways. Gait is slow and steady. He is oriented x1. He makes repeated requests for his car and his keys. He also expresses concern that he will "miss the bus". Unable to reorient patient. He follows directions at times. He is focused on piece of paper in his room with messages written to remind him of things that he repeatedly asks. He requested and was given an extra copy of this paper.
--- NOTE | 2019-08-13 21:04 | NUR ---
Pt. took po meds whole and in pudding. He could not stay on task to finish taking all 6 Depakote sprinkles. Medication then put in pudding and patient ate entire container. No coughing or choking noted after taking meds whole with water or when eating pudding with medications in it. He is currently in his room preparing for bed.
[2019-08-13 22:29] VITALS: BP 114/73
[2019-08-14 03:28] VITALS: BP 114/73
--- NOTE | 2019-08-14 06:42 | NUR ---
Pt. is up this am in dining room drinking coffee. He is sitting on couch and watching TV. No wandering noted and he appears to have no pain or distress.
[2019-08-14 06:55] LABS: HEMATOCRIT 39.2 % (42.0-52.0); HEMOGLOBIN 13.5 gm/dL (14.0-18.0); MCH 34.2 pg (26.0-34.0); MCHC 34.3 g/dL (28.0-37.0); MCV 99.6 fL (80.0-100.0); PLATELET COUNT 345 thou/uL (150-400); RBC 3.93 mil/uL (4.50-6.00); WBC 3.8 thou/uL (4.0-11.0)
[2019-08-14 07:17] LABS: ALBUMIN 3.9 g/dL (3.4-5.0); CALCIUM 9.5 mg/dL (8.5-10.1); POTASSIUM 4.1 mmol/L (3.5-5.1); TOTAL BILIRUBIN 0.3 mg/dL (<0.1-1.0); TOTAL PROTEIN 7.2 g/dL (6.4-8.2)
[2019-08-14 07:31] VITALS: BP 102/67
--- NOTE | 2019-08-14 07:36 | NUR ---
Assumed care at 0700. Up in dayroom watching TV, no offered complaints.
[2019-08-14 12:00] LABS: ABSOLUTE NEUTROPHILS 1.5 thou/uL (1.4-8.2)
[2019-08-14 12:01] LABS: PLATELET ESTIMATE NORMAL
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
--- NOTE | 2019-08-14 13:21 | NUR ---
Pt. went to sleep sitting on sofa watching TV after lunch.
--- NOTE | 2019-08-14 16:57 | NUR ---
Thus far he has been compliant with medications. He took about an hour nap sitting up in the dayroom. He does not initiate any conversation with peers. He is an observer of others. The PRN med given earlier gave him tremendous relief--no further loud, demanding, insistent, unreasonable demands.
--- NOTE | 2019-08-14 18:20 | NUR ---
Pt. insisted on shaving in the shower. He did so attended by nurse. No bleeding occurred. He has been steady on his feet today. He understandably gets upset when other pts. go into his room.
[2019-08-14 19:16] VITALS: BP 141/84
--- NOTE | 2019-08-14 21:52 | NUR ---
Assumed care of patient at change of shift. He is ambulating in hallways with a slow and steady gait that has a slight shuffle. Pt. asking the same questions over and over regarding his discharge, his car, and his wallet. Pt. is referred to paper that has all this information written in large and dark print that is kept in his room on a shelf. Pt. will read the paper and is satisfied for approximately 5 minutes only. He then reverts and starts asking same questions over.
--- NOTE | 2019-08-15 01:52 | NUR ---
Hope all is well with you and yours!! We're [place] down here [place] as know this s
[2019-08-15 03:35] VITALS: BP 141/84
--- NOTE | 2019-08-15 06:14 | NUR ---
Patient slept well through night. Currently he is ambulating in halls from his room to nurses station and to day room. He is requesting coffee and information regarding his discharge, car, and wallet. Pt. was redirected to the paper in his room that has all the answers on it. No signs or symptoms of pain or distress noted. Labs drawn this am and pt. tolerated well.
[2019-08-15 07:01] LABS: HEMATOCRIT 40.9 % (42.0-52.0); HEMOGLOBIN 13.9 gm/dL (14.0-18.0); MCH 33.8 pg (26.0-34.0); MCV 99.6 fL (80.0-100.0); PLATELET COUNT 363 thou/uL (150-400); RBC 4.11 mil/uL (4.50-6.00)
[2019-08-15 07:17] VITALS: BP 111/74
[2019-08-15 09:25] VITALS: BP 111/74
--- NOTE | 2019-08-15 09:40 | NUR ---
ASSUMED CARE AT 0700 TODAY. THIS PT. IS BEING AT THE NURSES STATION WANTING THE TELEPHONE AND WANTING HIS KEYS SO HE CAN GO HOME. PT. WAS INFORMED SEVERAL TIMES THIS IS NOT APPROPRIATE. HE TOOK HIS MEDICATIONS WITHOUT PROBLEMS NOTED.
[2019-08-15 11:10] LABS: ABSOLUTE NEUTROPHILS 1.6 thou/uL (1.4-8.2); ANISOCYTOSIS SLIGHT
--- NOTE | 2019-08-15 11:21 | NUR ---
Nutrition: pt admit [facility] with TBI, aggressive behavior at rehab facility. Seen for LOS. Pt eating well, 100% of meals on regular diet. Voices he likes the food. Reports stable weights. Noted 183# documented 3 weeks ago and current 176#. Will follow trends for accuracy. Noted pt exhibiting exit seeking behaviors and trying to get off unit. Low nutrition risk.
--- NOTE | 2019-08-15 13:01 | NUR ---
ASSUMED CARE AT 0700 THIS MORNING. PT. STABLE, STANDING AT NURSING STATION. HE CONTINUALLY WANTS THE KEYS TO HIS CAR, THE DOOR OPENED AND HIM TO BE ALLOWED TO LEAVE. HE WILL REPEAT THE QUESTIONS OVER AND OVER. EVENTUALLY HE REMARKED, "IF I AM NOT LET OUT IT IS NOT GOING TO BE PRETTY. I CAN BE CONTAINED ANYWHERE VERY LONG". WHEN HE REALIZED WHAT HE SAID HE REMARKED, "I WILL NOT HARM MYSELF, IF THAT'S WHAT YOU ARE THINKING". HE TOOK HIS MEDICATIONS WITHOUT DIFFICULTY. NO NEW PROBLEMS NOTED OR VOICED.
[2019-08-15 19:41] VITALS: BP 143/81
[2019-08-15 19:48] VITALS: BP 109/71
[2019-08-15 21:45] VITALS: BP 109/71
--- NOTE | 2019-08-16 01:23 | NUR ---
PATIENT HAS BEEN CALM AND COMPLIANT TONIGHT. NO BEHAVIORS SO FAR. HE HAS BEEN IN HIS ROOM SINCE 1930 THIS EVENING AND REFUSED SNACK. HIS ASSESSMENT WNL. HE DENIES PAIN, SI/HI/AVH. HE WAS PLEASANT, POLITE AND SMILING THIS EVENING. HE STATES HE WAS JUST READY TO GO TO BED AND WAS TIRED FROM THE DAY. PATIENT IS SLEEPING COMFORTABLY AT THIS TIME. CONTINUING TO MONITOR FOR SAFTY AND STATUS. WILL CONTINUE TO MONITOR.
[2019-08-16 08:29] VITALS: BP 119/71
--- NOTE | 2019-08-16 12:27 | NUR ---
Up ambulating in unit without s/o distress. Concerned about his wallet and getting his car. Alert and orientated to person, place but not to time or situation. Denies SI/HI. Stating he wants to get discharged. Breath sounds clear t/o, bilaterally equal. Reg HR auscultated. Color pink with brisk capillary refill and palpable peripheral pulses. No edema noted. Independent with voiding. Active bowel sounds over soft, rounded abdomen. Regular, steady gait.
[2019-08-16 19:42] VITALS: BP 101/56
--- NOTE | 2019-08-17 05:25 | NUR ---
Assumed care of pt @ 1900. Pt calm et cooperative this shift. Pt continues to perseverate on his vehicle et getting to it so that he can leave. Took medications whole without difficulty. Socialized in dayroom with peers until HS. VSWNL. Health assessment with no abnormalities noted at present time. Denies SI/HI. Currently resting in bed with eyes closed. Will continue to monitor per protocol.
[2019-08-17 07:46] VITALS: BP 110/69
--- NOTE | 2019-08-17 10:25 | NUR ---
Up ambulating in unit with regular, steady gait. Sitting in dining room when pillow, sheets, pads and pants noted to have dried blood on them. Pt. states he had a bloody nose. Full assessment including nares showed no s/o blood. Laura Barney [facility] reported that pt. was noted to have dried blood on nose at start of shift and he was told to wash his face by charge nurse. Leatha Partida confirmed pt had blood from nares and upper lip which he cleaned off. Alert and orientated to person, place but not to time or situation. Denies SI/HI. Calm, cooperative and compliant with meds this AM. Forgetful at times. Asked to use phone and I said I would help him in a few minutes. When I approached him a couple of minutes later he stated he didn't need to use the phone. Breath sounds clear t/o. Reg HR auscultated. Color pink with brisk capillary refill and palpable peripheral pulses. Independent with voiding. Active bowel sounds over soft, rounded abdomen.
[2019-08-17 19:43] VITALS: BP 135/86
[2019-08-17 20:00] VITALS: BP 135/86
--- NOTE | 2019-08-18 04:18 | NUR ---
PATIENT HAS BEEN CALM AND COOPERATIVE FOR THE MOST PART TONIGHT. HE DID GET ANGRY AND AGITATED WHEN ANOTHER CONFUSED MALE PATIENT ENTERED HIS ROOM WHEN HE WAS TRYING TO SLEEP. HE YELLED AT PATIENT AND WALKED HIM DOWN TO THE NURSE STATION. HE QUICKLY CALMED DOWN WHEN PATIENT WAS REMOVED FROM HIS SITE. PT WENT BACK TO BED. ATIVAN 0.5MG PO GIVEN WITH HS MEDS TONIGHT. HE DID NOT HAVE TRAZADONE HOWEVER, AND HE WAS UP AT 0400. HE SAT IN THE DINING ROOM FOR A MINUTE BEFORE GOING BACK TO BED. PATIENT IS LAYING IN BED IN HIS ROOM AT THIS POINT. HE DENIES PAIN. ASSESSMENT WNL. HAS NOT ASKED TO USE THE PHONE TONIGHT. CONTINUING TO MONITOR PT STATUS AND SAFETY THRU ROUTINE ROUNDING. WILL CONTINUE TO MONITOR.
[2019-08-18 07:33] VITALS: BP 116/79
--- NOTE | 2019-08-18 12:37 | NUR ---
ASSUMED CARE OF THE PT AT 0700. PT IS AMBULATORY. PT IS VERY CONFUSED AND CONTINUES TO TRY AND LEAVE THE FLOOR TO GO TO THE ROOF, HAD TO REDIRECT THE PT DAILY. VITALS WITHIN NORMAL RANGE. PT GIVEN ANXIETY MEDS, SEE EMAR. LUNGS ARE CLEAR, PULSES STRONG, NO C/O PAIN. NO NEW WOUNDS. BED IN THE LOWEST POSITION. WILL CONTINUE TO MONITOR THE PT.
--- NOTE | 2019-08-19 02:59 | NUR ---
ASSESSMENT: PT WAS CALM AT THE BEGINNING OF THE SHIFT. AFTER FALLING ASLEEP BEFORE GETTING HS MEDS, PT AWAKEN AGGITATED, NON-COMPLIANT WITH TAKING MEDS. REFUSED ALL MEDS AT THAT TIME. VSS, AFEBRILE. PT WAS ALLOWED TO RETURN BACK TO SLEEP. APPROXIMATELY 2 HRS LATER PT REQUESTED MEDS. PT WAS THEN COOPERATIVE WITH TAKING MEDS. LORAZEPAM AND TRAZADONE WAS GIVEN AND PT RETURNED BACK TO SLEEP AFTER PACING AROUND ROOM AND MAKING BED. PT DENIES SOB. EARLIER PT REQUESTED TO USE THE PHONE, WHEN HIS REQUEST WAS DENIES BY [employer]WIND[employer] KILGORE. PT STATED, "YOU WILL NOT HAVE A JOB TOMORROW. PT SAT IN THE DAY ROOM BRIEFLY BEFORE GOING TO BED. SLOW PROGRESS TOWARDS DC GOALS. WILL CONTINUE TO MONITOR.
[2019-08-19 07:00] VITALS: BP 99/64
--- NOTE | 2019-08-19 13:05 | NUR ---
RT Progress note- Patient continues to be involved in the milieu though he is often focused on finding various objects or discharging from the unit. He has made friends with several male peers who he confides with about various concerns he has. He continues to be able to refocus with the use of music.
--- NOTE | 2019-08-19 13:55 | NUR ---
Pt. up ambulating in unit without s/o distress. Orientated to person. States he is in rehab and gives a date in February. Denies SI/HI. Took shower independently. Restless at times pacing halls. At other times he sits quietly in chair or converses with peers. Breath sounds clear t/o. Reg HR auscultated. Color pink with brisk capillary refill. No edema noted. Independent with voiding. Active bowel sounds over soft, round abdomen. Regular, steady gait. Compliant with meds and meals.
--- NOTE | 2019-08-19 14:15 | NUR ---
MAXIMILIANO has spoken to Amara Shin and she thought pt was going to [facility]. Maximiliano then spoke with [facility] and they confirmed that earlier this week. MAXIMILIANO will call Miles and osirisrm these palns, and to confierm the trasnportation
--- NOTE | 2019-08-19 14:23 | NUR ---
MAXIMILIANO spoke with Sanam from and she stated that this pt will be admitted on 08/30. examination supervisor at 9am. The delay is due to the guardian insisting on a court hearing approving the transfer to [facility], while this is only a temprary placement. Sanam and her team will find nursing home placement in [place] afterat.
--- NOTE | 2019-08-20 05:40 | NUR ---
Assumed care of pt @ 1900. Pt calm et cooperative this shift. Pt did not receive HS meds this shift as he was too sedated to take them. Pt has been asleep in room since coming onto shift. VSWNL. Health assessment done while pt somnolent in the bed. No abnormalities noted at present time. Unable to assess SI/HI but pt does not appear to be in any acute distress at present time. Currently resting in bed with eyes closed. Will continue to monitor per protocol.
[2019-08-20 08:59] VITALS: BP 113/59
--- NOTE | 2019-08-20 09:02 | NUR ---
0700 ASSUMED CARE OF PATIENT. PATIENT IN DAYROOM FOR BREAKFAST, ATE 100%. NO C/O PAIN, DENIES NEEDS. MEDICATION TAKEN WHOLE WITH H2O. WILL CONTINUE TO OBSERVE.
--- NOTE | 2019-08-20 11:00 | NUR ---
PATIENT AT NURSES STATION REQUESTING TO LEAVE. USER SUPPORT ANALYST SUPERVISOR INFORMED PATIENT HE WOULD NOT BE GOING TODAY BECAUSE IT IS THE WEEKEND. PATIENT INCREASED HIS VOICE AT USER SUPPORT ANALYST SUPERVISOR STATING "THAT IS NOT ACCEPTABLE". WRITE ASKED PATIENT TO COME BACK AND TALK ONCE CALMED DOWN. PATIENT ATARES AT PATIENT, THEN TO ROOM. WILL CONTINUE TO OBSERVE.
--- NOTE | 2019-08-20 18:15 | NUR ---
PATIENT IN ROOM WITH DOOR LOCKED. DIESEL DINKEY ENGINEER EXPLAINED TO PATIENT ABOUT LEAVING DOOR OPEN. PATIENT VOICED UNDERSTANDING. PATIENT IS CALM AND COOPERATIVE AT THIS TIME. DENIES NEEDS
[2019-08-20 19:17] VITALS: BP 104/59
--- NOTE | 2019-08-21 04:31 | NUR ---
Assumed care of pt @ 1900. Pt calm et cooperative this shift. Took medications whole without difficulty. Ambulates the halls ad emely with steady gait. VSWNL. Health assessment with no abnormalities noted. Denies SI/HI. Isolates in room most of shift. Currently resting in bed with eyes closed. Will continue to monitor per protocol.
[2019-08-21 07:26] VITALS: BP 134/78
[2019-08-21 14:25] VITALS: BP 134/78
--- NOTE | 2019-08-21 14:34 | NUR ---
ASSUMED CARE AT 0700 THIS MORNING. PT. WAS IN BED AND STAYED IN BED THROUGHOUT BREAKFAST. HE GOT UP AFTER THAT. HE WAS PLEASANT AND COOPERATIVE WITH STAFF/PEERS UNTIL ABOUT 13:45 WHEN HE ATTEMPTED TO ENGAGE ANOTHER MALE PEER IN AN ARGUMENT. STAFF INTERVENED AND GAVE HIM PRN'S. HE CONTINUES TO ASK FOR HIS PHONE. WHEN IT WAS EXPLAINED THAT HIS PHONE IS NOT HERE, HE WANTED TO ARGUE ABOUT THE ARGUMENT DID NOT LAST LONG. AFTER PRN'S HE DID MELLOW OUT SOME AND DID WALK QUIETLY AROUND THE UNIT. HE WAS NO LONGER ATTEMPTED IN ENGAGE PEERS. HE TOOK HIS MEDICATIONS WITHOUT DIFFICULTIES. AFFECT REMAINS FLAT. PT. REMAINS IRRITABLE WHEN HE DOES NOT GET WHAT HE THINKS HE WANTS. WILL CONTINUE TO MONITOR PT.
--- NOTE | 2019-08-21 16:04 | NUR ---
SW completed 1:1 with patient in lieu of group due to COVID-19 restrictions. Patient was engaged but his conversation was focused on finding his cell phone and the bus stop so he could leave.
[2019-08-21 19:36] VITALS: BP 123/86
--- NOTE | 2019-08-22 04:51 | NUR ---
ASSESSMENT: PT MORE COOPERATIVE THIS SHIFT WITH MEDS AND FOLLOWING COMMANDS. DENIES PAIN. VSS, AFEBRILE. THIS AM, BEGAN PACKING ITEMS TO "GET READY TO LEAVE THIS MORNING". DID N0T USE THE PHONE THIS SHIFT. EX- DOES NOT WANT TO HEAR FROM PT AT ALL. EASY TO REDIRECT THIS SHIFT. SLOW PROGRESS TOWARDS DC GOALS, WILL CONTINUE TO MONITOR.
[2019-08-22 09:13] VITALS: BP 119/81
--- NOTE | 2019-08-22 10:44 | NUR ---
Nutrition: pt continues on [facility] unit and is eating 100% of meals on regular diet. No new weight to assess. REC obtain new weight as prior weight showed possible 7# loss in 3 wks. Continues on vitamin supplementation, folic acid, thiamine and MVI. pt not able to provide food prefs and voices no questions for RD. Continue as low nutrition risk.
--- NOTE | 2019-08-22 14:54 | NUR ---
Assumed patient care at 7am. patient calm and cooperative; denied pain, no n/v. took pill whole with water. health assessment without abnormalities other than previously noted. afebrile. lying in bed now, with eyes closed, chest up and down. will keep monitoring.
--- NOTE | 2019-08-22 17:46 | NUR ---
Patient slept through lunch and dinner. Doctor has been notified, will pass it on to the night nurse.
[2019-08-22 19:41] VITALS: BP 111/70
[2019-08-22 21:57] VITALS: BP 111/70
--- NOTE | 2019-08-23 01:06 | NUR ---
Assumed care of patient this pm shift. Patient in good spirits. Patient asked repeatedly about his car. Patient also exit seeking. Patients affect blunted. Patient takes medications whole. Patient ambulates without assistance. Patient confused about which room is his. Patients assessment shows clear breath sounds, active bowel sounds, and s1 s2 heard with auscultation. Vital signs stable. We will continue to monitor per protocol.
[2019-08-23 07:47] VITALS: BP 107/80
--- NOTE | 2019-08-23 09:48 | NUR ---
0700 ASSUMED CARE OF PATIENT. PATIENT ASLEEP IN BED AT THAT TIME. 0730 PATIENT AWAKE AND UP IN BATHROOM. 0800 PATIENT TO DAYROOM FOR BREAKFASY. PATIENT SITTING AT TABLE. MEDICATIONS TAKEN WHOLE WITHOUT DIFFICULTY. WILL CONTINUE TO OBSERVE
--- NOTE | 2019-08-23 14:11 | NUR ---
Sw sent updates to [facility] per their request.
[2019-08-23 19:31] VITALS: BP 96/66
--- NOTE | 2019-08-24 05:08 | NUR ---
Assumed care of pt @ 1900. Pt calm et cooperative most of shift. Pt had mild episode of agitation when asking to go out front door to get to his car. Pt did not want to be redirected et kept insisting that he needed to get ot his car. Informed pt that we were not going to discuss his car again tonight et that he could speak with the physician in the morning. Pt verbalized understanding. VSWNL. Health assessment with no abnormalities noted at present time. Currently resting in bed with eyes closed. Will continue to monitor per protocol.
[2019-08-24 09:35] VITALS: BP 106/69
--- NOTE | 2019-08-24 18:09 | NUR ---
0700 ASSUMED CARE OF PATIENT, PATIENT IN BED AT THAT TIME. PATIENT TO DAYROOM FOR BREAFAST, MEDICATION TAKEN WHOLE WITHOUT DIFFICULTY. LUNG SOUNDS CLEAR, BS ACTIVE, DENIES PAIN. GOAL FOR THE DAY PER PATIENT IS TO GET OUT OF HERE. CONCERN IS THE SAME. PATIENT WANDERING IN CHAKRABORTY EXIT SEEKING. PATIENT CONTINUES TO ASK TO LEAVE AND GO GET HIS CAR. PATIENT ASKED TO REFER BACK TO HIS NOT IN HIS ROOM REGARDING HIS CAR. PATIENT REDIRECTABLE AT TIMES. WILL CONTINUE TO OBSERVE.
[2019-08-24 19:39] VITALS: BP 113/91
[2019-08-24 20:30] VITALS: BP 113/91
--- NOTE | 2019-08-25 04:11 | NUR ---
Assumed pt care at 1900. Pt A/OX3 on assessment,denied SI/HI. Fixated on leaving and looking for his car; pt reminded to look at the note in his room regarding his car several times. LSCTA,VSS. Took all HS meds w/o problems and prompted to get some rest after sometimes and agreeable to.Pt been resting in bed w/o any distress. Will continue to monitor pt.
[2019-08-25 07:48] VITALS: BP 123/93
--- NOTE | 2019-08-25 08:30 | NUR ---
RT progress note- Patient continues to have his own schedule and tasks in mind throughout the day such as locating his car or calling his (ex) . He is more likely to participate in activities that are offered to him in the morning. He remains in the milieu and has begun to socialize with select male peers whom he holds various disoriented conversations with. Continues to enjoy music and remain calm when reoriented to present situation.
--- NOTE | 2019-08-25 09:45 | NUR ---
Late Note: Aug 23 1529 I was rounding on the unit. Nathan was sitting at a table, on the table was a chair alarm, which did not have the battery in the attached. Lv was biting on the cord. I took the chair alarm aware from him. I educated him on the dangers of chewing through an electrical cord. He argued that the battery was not attached to the alarm
[2019-08-25 20:38] VITALS: BP 108/70
--- NOTE | 2019-08-26 05:23 | NUR ---
Assumed care of pt @ 1900. Pt calm et cooperative with a couple of episodes of perseveration on finding his car and getting to his car. Pt was redirectable, but refused to take his medications this shift. Ambulates the halls ad emely with steady gait. Isolated in room most of shift. VSWNL. Health assessment with no abnormalities at this time. Denies SI/HI. Currently resting in bed with eyes closed. Will continue to monitor per protocol.
[2019-08-26 07:15] VITALS: BP 120/87
--- NOTE | 2019-08-26 09:39 | NUR ---
Nathan came to me wanting his shoelaces. I tried to explain to him that he did not need his shoelaces. He rasied his voice slightly; he I asked him to lower his voice he did. He was wanting his shoelaces so he could go to work and "meet with the senior java data architect." I explained to Nathan that it is raining outside and no one is working and with the the will be no work. He stated "You can't tell me what I can and cannot do." Again I explained to him that it was raining and the weekend, so no one will be working. Nathan is confused and does not comprehend that he is in the hospital.
[2019-08-26 12:52] VITALS: BP 120/87
--- NOTE | 2019-08-26 13:07 | NUR ---
ASSUMED CARE AT 0700 THIS MORNING. PT. STABLE. HE IS UP AND DRESSED ND ON THE UNIT IN THE [facility]. HE CONTINUES TO ASK FOR DIRECTIONS AND KEYS TO HIS CAR. HE CONTINUES TO ASK THIS QUESTION OVER AND OVER DURING THE COURSE OF THE DAY. HE ALSO BELIEVES HE IS LEAVING TODAY, BUT IS INFORMED HE IS NOT LEAVING TODAY. HE KEEPS SAYING HE NEEDS TO TALK TO THE DR. ABOUT THIS MATTER. HE TOOK HIS MEDICATIONS WITHOUT PROBLEMS NOTED. DENIES SI/HI OR AVH. HE CONTINUES TO HAVE FLAT AFFECT. HIS MOOD IS SOMBER.
[2019-08-26 19:40] VITALS: BP 103/55
--- NOTE | 2019-08-26 20:48 | NUR ---
Assumed care of patient at change of shift. Pt was laying in bed when his assessment was completed. No abormalities noted per nursing assessment. He is alert to name only. He states the year is 2011 and that he does not know where he is. He cannot talk to his discharge plans. He repeatedly asked where his car is and where his keys are. His affect is flat. He took meds po with tati but was cursing at this nurse as he took them. He was using profanity and kept his eyes closed as he took his medications. He finished the yogurt and did not open his eyes at all. He denies SI/HI and was angry but cooperative with cares.
[2019-08-26 21:54] VITALS: BP 120/87
--- NOTE | 2019-08-27 05:48 | NUR ---
Corrections to above note. There were no PHYSICAL abnormalities per nursing assessment. See rest of note for psychiatric details.
[2019-08-27 07:37] VITALS: BP 120/79
[2019-08-27 08:00] VITALS: BP 120/79
--- NOTE | 2019-08-27 15:53 | NUR ---
Nathan was in the day room waiting for breakfast to arrive when I arrived on duty. He appeared tense and anxious and frequntly has a blank stare. When I asked him about his goal for today he said " to get the hell out of here" and demaned to talk with the DR. He had alread spoken to the Cedric SALES REPRESENTATIVE SALES MANAGER which made rounds and had spoken to Nathan. Dustin conversation and attention has been on geting his or a car to go some were. He is easily agitated ,forgetfull and orientated x2. He denies SI, HI or hallucinations. Nathan seems to hang out with another pt. and walk and talk about place there going to go. At present Nathan is in the Day room watching TV.
--- NOTE | 2019-08-27 21:14 | NUR ---
Assumed care of patient at change of shift. Pt. was lying in bed resting quietly with his eyes closed. Respirations were even and non-labored. He was later heard to be yelling loudly to the BARROW WORKER HELPER, "get the fu__ out of here"! BARROW WORKER HELPER stated that she was just trying to get patient's vital signs. At approximately 2015 assessment was done. He became verbally abusive and combative with any touch. He refused to answer any questions and kept his eyes closed tightly unless yelling or being combative. His affect is flat and angry and he is very reactionary to tactile stimulation. Pt. refused hs medications despite numerous attempts. Every time the spoon got close to his face he could sense it's presence (his eyes were closed) and he would open his eyes, make facial growl, and would use profanity while grabbing at the spoon and this nurse's hands and arms. He stated, "I will punch you so fu__ing hard you won't even believe it", "they call me 1-punch Filiberto", and "get the fu__ out of here"! At last attempt patient grabbed spoon, twisted the handle and threw it at this nurse while yelling "get the fu__ out of here"! When not being touched or spoken to he lays quietly in bed with eyes closed with respirations being even and non-labored. Physical assessment is abnormal for skin being pale, trace bipedal edema, and 1+ edema to hands. He was asked if he had any SI/HI/AH/VH. He would not answer question. questions.
[2019-08-27 23:28] VITALS: BP 120/79
--- NOTE | 2019-08-28 00:57 | NUR ---
Pt. has twice been found sitting at side of bed. He still refuses to answer questions and is still very reactionary to tactile stimulation. No signs or symptoms of pain or distress noted.
--- NOTE | 2019-08-28 03:39 | NUR ---
Pt. got up and ambulated to day room and stayed for approximately 30 minutes before amulating back to his room. Gait is slow and steady. Pt. was pleasant and cooperative. He is alert and oriented x 2. He can state his name and states that he is in the hospital. No behaviors noted at this time.
--- NOTE | 2019-08-28 05:23 | NUR ---
Pt. is currently sitting in day room at a table with 4 chairs and 2 other peers. He is exchanging pleasantries but remains oriented to name and place only. No signs or symptoms of distress noted.
[2019-08-28 07:36] VITALS: BP 121/72
--- NOTE | 2019-08-28 10:33 | NUR ---
0700 ASSUMED CARE OF PATIENT, PATIENT SITTING IN DAYROOM. PATIENT UP AMBULATING IN CHAKRABORTY AND STANDING AT NURSES STATION ASKING TO GET OUT AND TO BE LET OUT THROUGH THE DOORS. CYLINDER MACHINE OPERATOR PULP DRIER HAS EXPLAINED TO PATIENT HE HAS NOT BEEN DICHARGED YET. PATIENT FORGETFUL AND CONFUSED. 0800 PATIENT IN DAYROOM FOR BREAKFAST, ATE 100% OF MEAL. NO C/O PAIN, DENIES SI/HI, MEDICATIONS TAKEN WHOLE WITHOUT DIFFICULTY. PATIENT CONTINUES TO STAND AT NURSES STATION AND FOLLOWS STAFF ONLY TO ASK TO GET OUT. WILL CONTINUE TO OBSERVE.
--- NOTE | 2019-08-28 13:33 | NUR ---
PATIENT NOTED WITH INCREASED AGGITAION, PATIENT ATTEMPTING TO ENTER NURSING STATION AND FIGHTING WITH STAFF TO ENTER THE AREA. PATIENT RAISES VOICE AND THREATENS JUKE BOX MECHANIC AND OTHER STAFF. ANOTHER PATIENT SAYS SOMETHING TO THE PATIENT AND PATIENT STARTS YELLING TO THE OTHER PATIENT STATING "IM GONNA BUST YOUR HEAD OPEN AND CRACK YOUR SKULL". PATIENT ESCORTED TO ROOM BY JUKE BOX MECHANIC. TATY BRITT ADMINISTERED LORAZEPAM 1 MG IM TO LEFT DELTOID FOR INCREASES AGGITAION AND AGGRESSION. SECURITY HERE TO ASSIST IN IM INJECTION. AFTER INJECTION PATIENT COMES UP TO NURSES STATION AND YELLS AT JUKE BOX MECHANIC. PATIENT PACING IN CHAKRABORTY LOOKING FOR AN EXIT. WILL CONTINUE TO OBSERVE.
--- NOTE | 2019-08-28 13:57 | NUR ---
PATIENT ASLEEP IN CHAIR SITTING IN DAYROOM. WILL CONTINUE TO OBSERVE
[2019-08-28 20:00] VITALS: BP 138/89
[2019-08-28 21:00] VITALS: BP 138/89
--- NOTE | 2019-08-29 01:39 | NUR ---
PATIENT WAS IN BED AND SLEEPING WHEN I CAME ON SHIFT. HE WAS INCONTINENT AND NEEDED BED CHANGED WHEN I CAME TO GIVE HIM HIS HS MEDS. HE WAS IRRITABLE, AND FRUSTRATED THAT WE WERE WAKING HIM UP TO CHANGE HIS BED AND GIVE HIM HIS MEDS. WITH COAXING AND TIME PATIENT DID GET UP AND WALK TO BATHROOM WITH ASSISTANCE D/T DROWSINESS. PT WAS CLEANED UP AND BED CHANGED. PT TOOK HIS MEDS WHOLE WITH WATER AND WAS ASSISTED BACK TO BED. BED ALARM SET D/T DROWSINESS FROM LORAZEPAM EARLIER IN DAY. PT AWOKE AND BED ALARM WENT OFF AT 0130. WENT TO ROOM AND PT WAS UP TO BATHROOM. HE IS MORE ALERT AND ORIENTED AND WAS PLEASANT AND COOPERATIVE. PT WENT BACK TO BED AND GAIT WAS STEADY. PT DENIES PAIN. PT CONTINENT AT THIS POINT. WILL CONTINUE TO MONITOR.
[2019-08-29 07:28] VITALS: BP 104/74
--- NOTE | 2019-08-29 11:14 | NUR ---
0700 ASSUMED CARE OF PATIENT, PATIENT IN ROOM AWAKE AT THAT TIME. 0750 PATIENT TO DAYROOM FOR BREAKFAST, PATIENT ATE 100% OF MEAL. MEDICATION TAKEN WHOLE WITHOUT DIFFICULTY. PATIENT DENIES NEEDS AT THAT TIME. DENIES NEEDS AT THIS TIME. AFTER BREAKFAST PATIENT ASKING TO LEAVE THROUGH THE DOUBLE DOORS. AT 0900 PATIENT ASKING TO SHAVE AND EXPLAINED TO PATIENT ABOUT GROUP TIME AND AFTER HE ATTENDS MORNING GROUP WE WOULD CONTINUE WITH SHAVING AND A SHOWER. PATIENT GETS MAD AND IN A DEEP VOICE DEMANDS A RAZOR. PATIENT ACCOMPANIED TO ROOM, UNIT CONTROLLER SITS AND TALKS TO PATIENT. PATIENT CONFUSED AND UNABLE TO DISCUSE ANYTHING. AFTER PATIENT CALM DOWN UNIT CONTROLLER ABLE TO ASSESS. LUNG SOUNDS CLEAR, BS ACTIVE, NO C/O PAIN. PATIENT ALERT & ORIENTED TO SELF ONLY. PATIENT SHOWERED THIS AM, WILL ASSIST WITH SHAVING. WILL CONTINUE TO OBSERVE
--- NOTE | 2019-08-29 18:16 | NUR ---
PATIENT EXIT SEEKING AND INCREASED AGGITATION NOTED. STAFF ATTEMPTING TO TALK TO PATIENT AND CALM PATIENT. PATIENT BECOMES VERY ANGRY AND RAISES VOICE USING GESTURES IF GOING TO HIT SOMEONE. AFTER A FEW MIN PATIENT CALMS DOWN AND SITS IN DAYROOM WATCHING TV. PATIENT UP PACING HALLS REQUESTING TO LEAVE. WILL CONTINUE TO OBSERVE
--- NOTE | 2019-08-29 18:40 | NUR ---
1830 ZYPREXA 7.5 MG IM GIVEN TO LEFT DELTOID FOR INCREASES AGITATION. SECURITY CALLED TO ASSIST WITH PATIENT TO GIVE INJECTION. PATIENT UP AMBULATING IN CHAKRABORTY AFTER THE INJECTION, WILL CONTINUE TO MONITOR.
[2019-08-29 19:44] VITALS: BP 107/77
[2019-08-29 21:00] VITALS: BP 107/77
--- NOTE | 2019-08-29 21:15 | NUR ---
Assumed care of patient this pm shift. Patient confused, exit seeking, trying to escape. Patient got his arm out the main door as other nurse was entering and resisted when asked to remove his arm. RN guided him back and closed the door. Patient very irritable, cussing and confused. Patient denies hi/si. Patient denies pain. Patient ambulates without assistance. Patient takes medications whole. Patients assessment shows clear breath sounds, active bowel sounds, and s1 s2 heard with auscultation. We will continue to monitor per hospital policy.
--- NOTE | 2019-08-30 07:38 | NUR ---
0700 ASSUMED CARE OD PATIENT, PATIENT IN BED WITH EYES CLOSED AT THAT TIME.
--- NOTE | 2019-08-30 10:20 | NUR ---
Nutrition followup: pt remains on [facility] unit and continues to eat very well, 100% of meals/snacks. Still confused and exit seeking. Weight discrepancies thought to be bedscale vs standing scale. Bedscale weights of 183# around admit but standing scale weights 172#. Current 168#. 4# decline in 3 weeks or 2% assuming standing scale weights more accurate. RD will offer Ensure BID due to weight loss despite excellent oral intake. Continues on MVI, folic acid, thiamine. ETOH hx. Continue as low risk with interventions in place.
--- NOTE | 2019-08-30 11:34 | NUR ---
PATIENT HAVING SOME INCREASED AGGITATION WITH EXIT SEEKING. RELAYS DRAFTSPERSON HAS ATTEMPTED TO TALK WITH PATIENT AND UNABLE TO REDIRECT WHEN ANGRY. PATIENT STARTS TO YELL AND CURSE WHEN HE DOES NOT GET WHAT HE WANTS IN THAT MOMENT. PATIENT GRABS A HOLD OF OPEN EXIT DOOR HOSPITAL STAFF ENTERING. STAFF YELLS FOR HELP STATING HE IS TRYING TO ELOPE. RELAYS DRAFTSPERSON AND OTHER STAFF TO THE EXIT AND PATIENTS HANDS OFF THE DOOR. PATIENT STARTS YALLING AND CURSING. PATIENT ESCORTED TO ROOM AND RELAYS DRAFTSPERSON TALKS TO HIM. PATIENT CALMS DOWN AND PATIENT IS CONTENT WITH THE DISCUSSION. PATIENT TO DAYROOM SITS ON COUCH AND CLOSES EYES. WILL CONTINUE TO OBSERVE.
--- NOTE | 2019-08-30 11:46 | NUR ---
PATIENT NOTIFIED BY ABOUT POSSIBLE PLAN FOR DC ON 08/31/19. PATIENT CONTINUES TO SIT IN DAYROOM WATCHING TV.
--- NOTE | 2019-08-30 13:16 | NUR ---
MAXIMILIANO recieved an emial that the [facility] has approved the treatment in [facility]. Maximiliano then called Mary at and asked for an update on the d/c date and time and if this had chaneged. MAXIMILIANO left a VM. Maximiliano also forwarded this email to Shanice and Dr blankenship. Maximiliano then requested from Homa at [facility] for a copy of the [place] decision via VM.
--- NOTE | 2019-08-30 13:58 | NUR ---
PATIENT TO NURSES STATION ASKING FOR HIS TRAILER. WHEN TACTICAL RESPONSE GROUP OFFICER EXPLAINS TO HIM THAT HIS TRAILER IS NOT HERE PATIENT STARTED TO GET AGGITATED. CLAIM SPECIALIST ALSO TELLS HIM THE SAME THING AND PATIENT YELLS STATING "I AM NOT TALKING TO HER". TACTICAL RESPONSE GROUP OFFICER TELLS PATIENT TO TALK TO HIS NURSE AND PATIENT PASSES BY CLAIM SPECIALIST FLIPPING CLAIM SPECIALIST OFF. PATIENT THEN WALKS AWAY. WILL CONTINUE TO OBSERVE.
[2019-08-30 20:45] VITALS: BP 137/79
[2019-08-30 23:29] VITALS: BP 137/79
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
[2019-08-31 07:45] VITALS: BP 112/82
--- NOTE | 2019-08-31 12:18 | NUR ---
ANGRY FACIAL EXPRESSION,DYSPHORIC MOOD NOTED THROUGHOUT SHIFT SO FAR-HAS HAD 2 LOUD OLUTBURSTS,YELLING PROFANITY X1 AT RT STAFF AND X1 AT A MALE PEER WHEN SITTING DOWN FOR LUNCH. REPORTS FEELING "AT THE END" REGARDING CONTINUED HOSPITAL STAY-DELUSIONS OF PERSECUTION THINKING HE HAS BEEN PLACED OUT OF STATE PUNISHMENT "EVERYONE ELSE GETS TO STAY 2-3 MILES FROM THEIR HOME"REQUIRED PHYSICAL INTERVENTON AT NOON TO PREVENT COMBATIVE BEHAVIOR. IS COOPERATIVE WITH TAKING MEDS. REFUSES PAIN/DISCOMFORT. GAIT STEADY WITHOUT ASSISITIVE DEVICES
[2019-08-31 19:59] VITALS: BP 109/75
[2019-08-31 21:00] VITALS: BP 109/75
--- NOTE | 2019-09-01 04:02 | NUR ---
SINCE BEGINNING OF MY SHIFT AT 1900 PATIENT HAS BEEN ANGRY, EASILY FRUSTRATED, SEEKING TO ELOPE AND YELLING AT STAFF AND PEOPLE. HE WAS OBSESSED AT FIRST ABOUT HIS CLOTHES IN THE LAUNDRY. HE INSISTS THAT HE HAD 2 DRESS SHIRTS IN WITH HIS JEANS. DAY NURSE BEFORE SHE LEFT TOLD HIM SHE JUST HAD JEANS IN AND HE DID NOT HAVE DRESS SHIRTS. I WALKED PATIENT TO LAUNDRY ROOM AND SHOWED HIM THAT HIS JEANS WERE IN THE WASH. I OPENED THE DOOR AND SHOWED HIM NO SHIRTS. I WALKED HIM TO THE LOCKER STORAGE AREA AND OPENED HIS LOCKER AND LET HIM KNOW NO SHIRTS IN THERE. TOLD PATIENT THAT THE ONLY SHIRT HE HAS HAD IS THE BROWN SWEATER HE WAS WEARING. PT CALMED FOR A BIT AND THEN WENT TO HIS ROOM AND PACKED HIS STUFF IN A WASH BASIN AND WENT TO UNIT ENTRY DOORS AND BANGED ON THEM AND RANG DOOR FLAHERTY SEVERAL TIMES AND YELLED TO LET HIM OUT. TRIED TALKING WITH PATIENT WITHOUT SUCCESS. PATIENT BEGAN YELLING AT OTHER PATIENTS AND CALLING THEM DUMB AND STUPID ASSES AND TO SHUT THE F UP! HE DID TAKE HIS MEDS WITH PRN LORAZEPAM IN IT WITHOUT ISSUE DURING THIS TIME. HIS ANGER KEPT ESCULATING. CALLED DR SCHMITT WHEN PATIENT WOULD NOT STOP BANGING ON THE DOORS AND YELLING AND WAS UNABLE TO CALM OR REDIRECT. ORDER GIVEN FOR GEODON 10MG IM. SECURITY CALLED TO ASSIST WITH INJECTION. GEODON 10MG IM GIVEN AT 5. PATIENT ASSISTED TO BED AND PATIENT SLEPT WITH BED IN LOW POSITION AND BED ALARM ON UNTIL 3AM WHEN HE AWOKE D/T INCONTINENCE. CLEANED PATIENT UP AND CHANGED CLOTHES AND BEDDING. BROWN SWEATER TO WASHER. PT BACK TO BED. HE WAS PLEASANT AND COOPERATIVE. BED IN LOW POSITION AND BED ALARM ON D/T GEODON SEDATION.
[2019-09-01 08:19] VITALS: BP 122/70
--- NOTE | 2019-09-01 10:26 | NUR ---
REMAINS EXIT SEEKING-PROCCUPIED WITH FINDING KEYS AND CAR-ORIENTED TO PERSON ONLY HE BELIEVES HE IS AT A HOTEL. GAIT IS STEADY WITHOUT ASSISTIVE DEVICES, ATIVAN 1MG GIVEN PO PRN AT O900 FOR INCREASING RESTLESSNESS/AGITATION,THREATNING TO HIT FEMALE PT IF SHE "DOESN'T SHUT THE HELL UP" IS COMPLIENT WITH TAKING PO MEDS-TAKING FOOD AND FLUIDS WELL, DENIES PAIN/DISCOMFORT.
--- NOTE | 2019-09-01 11:11 | NUR ---
RT Progress Note- Nathan's already very limited participation in recreation groups and activities has decreased even more so. His temper and patience have been poor. He has presented in groups only to ask where particular belongings are or how to get off of the unit.
--- NOTE | 2019-09-01 13:14 | NUR ---
Max[facility]iliano [facility]ad[facility] regaridng the auth and placement. MAXIMILIANO and Dr blankenship also called Miles and asked him to complete the admission paperwork that was sent to him on Thursday from [facility]. Miles stated he would ge thtis done in the next 30 minutes. IF this is completed , this pt might be able to d/c this or Thursday. We are pending olive picker.
[2019-09-01 19:45] VITALS: BP 117/83
--- NOTE | 2019-09-02 01:40 | NUR ---
PATIENT AOX2 CONFUSED AND FORGETFUL THIS SHIFT. PATIENT DENIED ALL PSYCH ISSUES.PATIENT WAS CALM AND COOPERATIVE WITH MEDS AND CARE. PATIENT ENCOURAGED FLUIDS. PATIENT HAS UNSTEADY GAITS. PATIENT HAD A FLAT AFFECT, POOR EYE CONTACT, POOR GROOMING AND HYGIENE. PATIENT IN BED ASLEEP AT THIS TIME BREATHING REGULAR AND UNLABOURED
--- NOTE | 2019-09-02 02:57 | NUR ---
ILA AOX3 CONFUSED AND FORGETFUL AT TIMES. PATIENT ISOLATIVE THIS SHIT.PATIENT HAS A FLAT AFFECT,POOR EYE CONTACT, FAIR GROOMING AND HYGIENE. PATIENT ISOLATIVE THIS SHIFT.PATIENT ENCOURAGED FLUIDS. PATIENT ISOLATIVE THIS SHIFT. PATIENT DENIED PAIN OR DISCOMFORT. PATIENT IS UP AT LIZET. NEED MINIMUM ASSISTANCE WITH SDL, BED MOBILITY, TRANSFER AND TOILETING.PATIENT IN BED ASLEEP AT THIS TIME BREATHING REGULAR AND UNLABOURED.
[2019-09-02 07:49] VITALS: BP 107/77
--- NOTE | 2019-09-02 13:10 | NUR ---
Jimenez was told via email today that d/c to [facility] will be delayed until September 13. Jimenez sent referrals to [facility], [facility] , and [facility] in [place]. This was reported to Miles. Jimenez also sent updates to [employer].
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
[2019-09-02 19:55] VITALS: BP 126/72
--- NOTE | 2019-09-03 00:21 | NUR ---
Assumed care of patient at change of shift. He was lying in his bed with eyes closed. Respirations were even and non-labored. Assessment completed. He opened his eyes at start of assessment and said, "hi". Pleasantries were exchanged. Pt. took his meds crushed in yogurt. No choking or coughing noted after swallowing. His physical assessment was WNL except 1+ edema to bilat hands and to bilat ankles. Right ankle is slightly more. Bottom of both feet are brite red. No pain when redness is palpated. No rash or other skin problem noted to redness. Right side is slightly more than left. Pt. is oriented x 1 only. He can state his name but can't correctly state place, date, or situation. Pt. is alert and asked same questions repeatedly. He is given the answers and redirected. He denies pain and no signs or symptoms of distress is noted.
[2019-09-03 00:31] VITALS: BP 126/72
--- NOTE | 2019-09-03 05:37 | NUR ---
Patient has been able to sleep quietly throughout the night with no further issues or concerns to report at this time.
[2019-09-03 08:46] VITALS: BP 114/72
--- NOTE | 2019-09-03 11:41 | NUR ---
DYSPHORIC MOOD-EASILY AGITATED WITH STAFF AND PEERS. SOME VERBAL AGITATION IN FORM OF SHOUTING AND PROFANITY AT BOTH STAFF AND MALE PEER THIS AM. DURING 11 STATES HE BELIEVES HE IS IN A HOTEL AND CALLS THIS NURSE PADMINI. "PADMINI THIS IS THE WORST HOTEL AND I AM GETTING OUT OF HERE-TODAY IS MY LAST DAY I PROMISE YOU THAT" WAS COMPLIENT WITH TAKING PO MEDS AND ATE WELL AT BREAKFASR-DENIES C/O PAIN. GAIT STEADY WITHOUT ASSISTIVE DEVICES.
--- NOTE | 2019-09-03 17:02 | NUR ---
Patient declined participating in group today.
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
[2019-09-03 19:49] VITALS: BP 103/65
--- NOTE | 2019-09-03 23:40 | NUR ---
Assumed care of patient at change of shift. He was at nurse's station requesting razor to complete shave with. This nurse informed him that as soon as I had available time I would come to his room and assist him shave. He said "it's not gonna be a homo thing is it"?, "I don't want a homo just standing next to me in the shower", and "I don't want a naked homo standing in the shower with me. He will have it in his hand and whacking it". Pt. was reassured that this nurse personally would bring the razor and assist with shave and standby for safety reason. He was satisfied with this statement. Approximately 10 minutes later a razor and shaving cream was taken to patient in his room and he proceeded to his bathroom to shave. He did so without incident. Assessment completed after patient was done shaving. He is alert to name only. He cannot state what date it is or what year it is. He also cannot state where he is nor does he remember why he is here. He makes same inquiries repeatedly about finding his car and car keys as well as his wallet. He is never happy with the correct answer he is given. Pt. has a piece of paper with the whereabouts and particulars of his car, keys and wallet written down. He shows frustration when reference is made to the paper. Physical assessment is without gross abornormalities with the exception of 1+ bipedal and bilat hand edema. Knuckles on hands are also enlarged. Pt. denies pain and no signs or symptoms of pain or distress is noted.
[2019-09-04 03:50] VITALS: BP 103/65
[2019-09-04 07:46] VITALS: BP 114/78
[2019-09-04 08:53] VITALS: BP 114/78
--- NOTE | 2019-09-04 10:54 | NUR ---
FREQUENTLY AT NURSES STATION OR WILL SEEK OUT NURSING STAFF WITH VARIOUS DEMANDS "YOU NEED TO GET MY KEYS NOW" "I NEED TO CHECK OUT NOW" "LET ME OUT SO I CAN GET TO THE CAR RENTAL BEFORE IT CLOSES" REORIENTED FREQUENTLY AND WILL CALM FOR 5-10 MINUTES BEFORE AGAIN SEEKING AT STAFF WITH SAME TYPE DEMANDS. AT APPROX 0815 WAS ARGUING WITH FEMALE PEER IN HALLWAY AND DIFFICULT TO REDIRECT-THREATNING TO HURT PEER. ATIVAN 1MG PO PRN AT APPROX 0830 FOR ABOVE NOTED. SLIGHTLY CALMER AFTER THIS AND DID SIT IN DAYRROM WITH PEERS FOR APPROX 10-15 MINUTES BEFORE RESUMING PACING
--- NOTE | 2019-09-04 16:03 | NUR ---
Patient unable to participate in group due to cognitive deficit.
[2019-09-04 20:16] VITALS: BP 115/67
--- NOTE | 2019-09-04 23:30 | NUR ---
ASSUMED CARE ON 09/04/19 @ 19:15, IN BED EYES CLOSED, RESPIRATIONS EVEN AND UNLABORED. IRRITABLE WITH STAFF WHEN TAKING VITAL SIGNS. CURSING WHEN B.P. TAKEN, REFUSED THERMOMETER. VS W/N/L. RESPIRATIONS EVEN AND UNLABORED, BED IN LOW POSITION. WILL CONTINUE TO MONITOR Q 12 MIN FOR PATIENT SAFETY.
[2019-09-05 04:00] VITALS: BP 115/67
--- NOTE | 2019-09-05 06:08 | NUR ---
SLEPT WELL, GETTING 8.6 HOURS OF SLEEP OVERNIGHT
[2019-09-05 07:20] VITALS: BP 110/85
--- NOTE | 2019-09-05 14:31 | NUR ---
Followup: continues to eat consistently well plus drinking ensure enlive supplements. Wt up 2 lb from last week. healthy BMI status and on MVI, folic acid, thiamine supplementation from hx Etoh. Low nutrition risk
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
--- NOTE | 2019-09-05 19:15 | NUR ---
Care of patient assumed at 1915. Patient is in the restroom and asks that nurse return in 5 minutes. Upon return, patient is lying in bed. Cooperative with assessment. BS Ax4, LS CTA, HS reg. A/O x 3, disoriented to time. Able to recognize that this is a hopital, but it is noted that earlier today he thought he was in a hotel. Very suspicious of staff, asking for specific details of what nurse's job entails. Denies pain. Denies SI/HI.
[2019-09-05 19:21] VITALS: BP 117/79
[2019-09-06 07:49] VITALS: BP 103/73
[2019-09-06 09:10] VITALS: BP 103/178
[2019-09-06 09:22] VITALS: BP 103/173
--- NOTE | 2019-09-06 10:50 | NUR ---
1040 RESUMMED CARE FROM OVERNIGHT SHIFT THIS AM, PATIENT IS IN ROOM DOING HYGEINE. PATIENT CAME OUT ATE BREAKFAST TOOK MEDICATION WITHOUT INCIDENCE. PATIENTS ABDOMEN SOFT ROUND BOWEL SOUNDS PRESENT, LUNGS CLEAR PATIENT DENIES SI/HI/AH/VH AT PRESENT. PATIENT AFTER BREAKFAST STARTED ASKING ABOUT A LOST AND FOUND ABOUT HIS GLOVER TO HIS CAR. PATIENT IS STILL CONFUSED AND FORGETFUL HE CONSTANTLY IS AT THE NURSES OFFICE SKING ABOUT HIS CAR AND WHEN HE CAN GO HOME. PATIENT IS REDIREDCTABLE WILL CONTINUE TO MONITOR FOR SAFETY AND BEHAVIORS.
--- NOTE | 2019-09-06 19:15 | NUR ---
Care of patient assumed at 1915. Patient is oriented to self and situation only. Says that he has been thinking about problems at home that he needs to work out with his siblings. Denies pain. Denies SI/HI. HS, LS, BS all wNL. Requests that HS meds be given early so he can go to sleep. Meds are obtained and brought to patient at 1950. Patient is compliant with meds, and accepts encouragement to use the bathroom before going to sleep.
[2019-09-06 19:58] VITALS: BP 100/56
[2019-09-07 07:41] VITALS: BP 94/61
--- NOTE | 2019-09-07 10:07 | NUR ---
CONTINUES TO MAKE MULTIPLE REFERENCES TO BEING IN A HOTEL AND WHEN HE CAN "CHECK OUT"PROECCUPIED WITH FINDING CAR KEYS AND WALLET. SO FAR THIS SHIFT ABLE TO BE REDIRECTED WITHOUT SIGNIFICANT AGITATION.
[2019-09-07 20:08] VITALS: BP 116/73
--- NOTE | 2019-09-08 03:51 | NUR ---
6 CARE TRANSFERRED AT [id number] PT SUPINE RESTING WITH EYES CLOSED IN BED, PT WAS EASILY AROUSED TO VOICE. PT AAOX1 PRESENTS CALM AND COOPERATIVE THROUGHOUT NURSING ASSESSMENT. PT DENIES ANY PAIN AND SI/SH/HI/AVH. DURING MEDICATION ADMIN ZERO DIFFICULTIES. OF NOTE, PLEASE REFER TO NURSING INTERVENTION FOR MORE INFORMATION. ZEERO ACUTE DISTRESS NOTED.
[2019-09-08 07:51] VITALS: BP 99/72
--- NOTE | 2019-09-08 09:24 | NUR ---
0700 ASSUMED CARE OF PATIENT, PATIENT SITTING IN DAYROOM AT THAT TIME. 0820 PATIENT EATING BREKFAST IN DAYROOM. PATIENT ATE 100% OF MEAL. NO C/O PAIN. MEDICATION TAKEN WHOLE WITHOUT DIFFICULTY. PATIENT UP AMB IN HLL AFTER BREAKFAST. 0925 PATIENT TO NURSES STATION ASKING TO GO DOWN STAIRS TO GO TO HIS VEHICLE. BATTERY INSTALLER EXPLAINS HIS VEHICLE IS NOT HERE. AFTER A FEW MIN OF GOING BACK AND FORTH ABOUT LEAVING THE FLOOR, PATIENT WALKS AWAY. WILL CONTINUE TO OBSERVE.
--- NOTE | 2019-09-08 12:24 | NUR ---
MAXIMILIANO faxed updates to [facility]
--- NOTE | 2019-09-08 15:09 | NUR ---
PT TOLD SENIOR CORPORATE RECRUITER TO GET THE FUCK AWAY FROM ME, PT GETTING LAB DRAW AND ENCOURAGED TO SIT ON COUCH. AFTER BLOOD DRAW HE DID APOLOGIZE TO SENIOR CORPORATE RECRUITER ABOUT BEING ANGRY WITH HER.
[2019-09-08 15:19] LABS: HEMATOCRIT 37.7 % (42.0-52.0); HEMOGLOBIN 12.7 gm/dL (14.0-18.0); MCHC 33.7 g/dL (28.0-37.0); RBC 3.74 mil/uL (4.50-6.00); RDW 14.1 % (10.5-14.5); WBC 5.6 thou/uL (4.0-11.0)
[2019-09-08 15:29] LABS: CALCIUM 9.5 mg/dL (8.5-10.1); POTASSIUM 4.4 mmol/L (3.5-5.1)
--- NOTE | 2019-09-08 18:34 | NUR ---
PATIENT CONTINUES TO COME TO NURSES STATION REQUESTING TO GO OUTSIDE TO LOOK FOR HIS VEHICLE. NO AGGRESSIVE BEHAVIOR NOTED. DIFFICULTY REDIRECTING PATIENT AND REORIENTING PATIENT. WILL CONTINUE TO OBSERVE
--- NOTE | 2019-09-09 06:20 | NUR ---
09-08-19 CARE TTRANSFERED AT 1915, OBSERVED PT IN ROOM. 2009 PT SUPINE RESTING WITH EYES CLOSED, PT AAOX2, IRRITABLE BUT PT REMAINED COOPERATIVE THROUGH NURSING ASSESSMENT. PT DENIES PAIN AND SI/SH/HI/AVH. OF NOTE, PLEASE REFER TO NURSING INTERVENTIONS FOR MORE INFORMAITON. ZERO ACUTE DISTRESS NOTED.
[2019-09-09 07:40] VITALS: BP 108/75
--- NOTE | 2019-09-09 08:23 | NUR ---
RT Progress Note- Nathan continues to not participate in group recreation therapy. He holds his own agenda- looking for his car, questions about discharge- and is difficult to achieve focus for structured activity.
--- NOTE | 2019-09-09 12:21 | NUR ---
0700 ASSUMED CARE OF PATIENT AT THAT TIME, PATIENT SITTING IN DAYROOM AT 0720. PATIENT ATE 100% OF MEAL. MEDICATIONS TAKEN WHOLE WITHOUT DIFFICULTY. PATIENT UP AMBULATING IN CHAKRABORTY AFTER BREAKFAST. PATIENT TALKED WITH DR CARR IN DAYROOM AND DR MENTIONED POSSIBLE DISCHARGE FOR NEXT THURSDAY TO PATIENT. PATIENT HAS BEEN CALM AND NO AGGITATION NOTED AT THAT TIME. PATIENT EATING LUNCH AT THIS TIME, WILL CONTINUE TO OBSERVE
--- NOTE | 2019-09-09 13:49 | NUR ---
MAXIMILIANO called Mary at [facility] and left a VM asking for an update regaridng the d/c on Thu. Weekend SW will send updates.
--- NOTE | 2019-09-09 16:14 | NUR ---
JIMENEZ called and left a 2nd vm for Mary at . Jimenez then emailed and requested any feedback or updates about the d/c on Thu.
[2019-09-09 19:33] VITALS: BP 101/68
--- NOTE | 2019-09-10 04:37 | NUR ---
09-09-19 CARE TRANSFERED AT 1915 OBSERVED PT SUPINE RESTING WITH EYES CLOSED. 2024 PT SUPINE RESTING WITH EYES CLOSED, EASILIY AROUSED TO VOICE, PT AAOX1, CALM AND COOPERATIVE THROUGH NURSING ASSESSMENT. PT AND ZERO DIFFICULTIES WITH MEDICATION. ZERO ACUTE DISTRESS NOTED THROUGHOUT ROUNDING.
[2019-09-10 07:05] VITALS: BP 106/73
--- NOTE | 2019-09-10 09:13 | NUR ---
0700 ASSUMED CARE OF PATIENT. PATIENT IN BED AT THAT TIME. PATIENT SITTING ON COUCH IN DAYROOM WATCHING TV. PATIENT ATE 100% OF MEAL THIS AM. NO C/O PAIN, DENIES SI/HI, MEDICATION TAKEN WHOLE WITHOUT DIFFICULTY. PATIENT CALM AND COOPERATIVE AT THIS TIME. WILL CONTINUE TO OBSERVE
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
[2019-09-10 19:00] VITALS: BP 97/58
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
[2019-09-11 07:31] VITALS: BP 112/65
[2019-09-11 08:15] VITALS: BP 112/65
--- NOTE | 2019-09-11 09:00 | NUR ---
PT WALKING AROUND UNIT. PT STILL WANTING FRONT DOOR OPENED TO LEAVE. PT TALKED ABOUT WANTING TO GET INFO OUT OF CAR. ASKED PT ABOUT WHAT DOES HE NEED. PT STATED IT WAS [employer]. GETTING FREIGHT ASSOCIATE TO PRINT OUT BLUE[employer]TS FOR GOLF [employer]SE. PT DID TAKE MEDS IN CHAKRABORTY WITH WATER.
--- NOTE | 2019-09-11 11:53 | NUR ---
PT GETTING UPSET AND WANTING TO LEAVE. ADM LORAZEPAM 1MG PO FOR PT GETTING AGITATED.
--- NOTE | 2019-09-11 11:53 | NUR ---
Given Lorazepam 1 mg. po for severe agitation-yelling/arguing/inciting angery outburst from a female patient who ws sitting at the table in the dayroom.
--- NOTE | 2019-09-11 13:07 | NUR ---
PT AT DESK WANTING TO USE THE PHONE TO CALL HIS . TOLD PT THAT HIS DIDN'T WANT TO HAVE CALLS, HE SAID IT IS ALRIGHT AND HE HAS TALKED TO HER BEFORE ITS OK. PT UPSET AND CURSING AT STAFF.
--- NOTE | 2019-09-11 13:09 | NUR ---
PT SAYING SHUT THE FUCK UP TO STAFF.
--- NOTE | 2019-09-11 15:51 | NUR ---
SW sat with Pt to descalate after becoming upset and yelling at staff and other Pts. SW asked Pt to assist with a task and walked with Pt back to his room. While in the room pt kicked his bed several times stating " I am going to get him, he is a fucking asshole". SW had Pt sit on his bed and attempted to validate Pt feelings and move to another topic. Pt begin to descalate and wanted to lay down. SW asked if Pt was okay to stay in his room until he was calm enough to return to the common area. Pt agreed and lied down in his bed. Pt asked SW to close his room door. SW complied and left Pt room.
[2019-09-11 19:37] VITALS: BP 112/72
--- NOTE | 2019-09-11 22:43 | NUR ---
ASSUMED CARE OF PATIENT AT APPROXIMATELY 1915, THROUGOUT THE EVENING PATIENT HAS RUMENATED ON NEEDING HIS KEYS TO HIS CAR AND STATES "ISNT IT LEGAL TO DRIVE THESE DAYS." THIS NURSE REDIRECTED PATIENT AND ATTEMPTED TO GROUND PATIENT TO CURRENT SETTING WHICH REQUIRED SEVERAL ATTEMPTS TO WHICH PATIENT RESPONDED WELL TO. HE DID NOT REPORT SI/HI AND NOT SHOWING ANY HALLUCINATIONS AT THIS TIME. HE DENIED MEDICAL CONCERNS WITH NO S/S OF DISTRESS. NURSING WILL MAINTAIN ALL PRECAUTIONS TO ENSURE SAFETY, GROUND PATIENT NEEDED FOR PROPER CARE.
--- NOTE | 2019-09-12 04:54 | NUR ---
Patient up x1 through the night. Incontinent of bladder. Patient able to provide own evonne care and change clothing independently. Bed linens changed by staff. Patient was able to retire back to bed and fall asleep without difficulty. Despite incontinent episode, patient has been able to rest quietly without issue.
[2019-09-12 07:38] VITALS: BP 98/66
[2019-09-12 08:00] VITALS: BP 98/66
--- NOTE | 2019-09-12 08:22 | NUR ---
PT SITTING IN DINING ROOM. PT DIDN'T HAVE A GOAL TODAY EXCEPT TO GET OUT OF HERE. PT TOOK MEDS THIS AM WITHOUT ANY ISSUES. PT LUNGS CLEAR. DENIES ANY PAIN.
--- NOTE | 2019-09-12 09:55 | NUR ---
Followup: eating 100% of meals and drinking Ensure bid. Wt up 6 lb since admit. Will decrease Ensure to 1x daily. Low nutrition risk
--- NOTE | 2019-09-12 10:59 | NUR ---
SW received an email from [facility] with [facility] stating they are planning to picking crew supervisor patient "a week from Thursday." SW replied and asked for clarification with a specific date and time. Team notified.
--- NOTE | 2019-09-12 12:30 | NUR ---
PT GETTING UPSET WITH HIS ROOMMATE AND WANTING TO KNOW THE AIDES NAME. PT STATED THAT THE PATIENT CAN LAY DOWN OUT IN DINING ROOM. PT GETTING VERY LOUD WITH AIDE AND STANDYING CLOSE. HE JUMPED FORWARD TOWARDS AIDE, SPOOL MAKER IS PRESENT AND STATED THAT HE NEEDS TO CALM DOWN OR HE WILL EXTEND HIS STAY. PT VERY FRUSTRATED.
--- NOTE | 2019-09-12 13:05 | NUR ---
ADM LORAZEPAM 1MG PO FOR INCREASED AGGRESSION. PT TOOK MED WITHOUT ANY ISSUES. PT STANDING AT NURSES DOOR.
--- NOTE | 2019-09-12 14:08 | NUR ---
PT IS RESTING IN BED AT THIS TIME.
--- NOTE | 2019-09-12 18:45 | NUR ---
PT ATE BREAKFAST AND TOOK MEDS. PT WANTING TO TALK TO GOLF COURSE SUPERINTENDANT AND WANTING TO TALK TO HIM ABOUT THE GOLF COU[employer]SE. THIS DIRECTOR ACUTE PRETENDED TO CALL A GOLF COURSE AND LEFT A MESSAGE FOR THE PERSON TO CALL HER TOMMOROW.
[2019-09-12 19:48] VITALS: BP 129/83
[2019-09-12 21:23] VITALS: BP 129/83
--- NOTE | 2019-09-13 01:13 | NUR ---
Assumed care of patient this pm shift. Patient in good spirits. Patient showered this evening shift. Patient denies pain. Patient denies hi/si. Patient states that he needs to get his stuff as he is ready to leave. Patient is continent of bowel and bladder while awake but has accidents when sleeping. Patient takes medications whole. Patient is alert and oriented to self. Patient ambulates without assistance. Patients assessment shows clear breath sounds, active bowel sounds, and s1 s2 heard with auscultation. Patient shows no signs of aggressive behavior this shift. We will continue to monitor per hospital policy.
[2019-09-13 07:39] VITALS: BP 128/84
[2019-09-13 09:25] VITALS: BP 119/57
--- NOTE | 2019-09-13 12:21 | NUR ---
RESUMMED CARE FROM OVERNIGHT SHIFT THIS AM, PATIENT IN ROOM LYING QUIETLY ON BED. PATIENT GOT UP ATE BREAKFAST AND TOOK MDICATION WITHOUT INCIDENCE. PATIENTS ABDOMEN SOFT ROUND BOWEL SOUNDS PRESENT LUNGS CLEAR. PATIENT DENIES SI/HI/AH/VH AT PRESENT.AROUND 1145 PATIENT STARTED CHASING A STAFF WHO WAS PUTTING UP SUPPLIES. PATIENT STARTED YELLING NOT FOLLOWING DIRECTIONS, DR KESHIA WRIGHT 15 MG IMTO CALM PATIENT DOWN. PATIENT AT FIRST WAS NOT GOING TO TAKE INJECTION. DR TATE CAME IN THE ROOM AND PATIENT TO INJECTIONS STATING HOW MUCH IS IN THE SHOT. PATIENT CALMED DOWN AFTER INJECTION WILL CONTIUE TO MONITOR PATIENT FOR SAFETY AND BEHAVIORS.
[2019-09-13 19:31] VITALS: BP 104/68
--- NOTE | 2019-09-14 05:26 | NUR ---
Assumed care of pt @ 1900. Pt sedated this shift from IM given on previous shift. Unable to take medications due to sedation. VSWNL. Health assessment with no abnormalities noted at present time. No behaviors noted this shift due to sedation. Unable to assess SI/HI due to sedation but pt does not appear to be in any acute emotional distress at present time. Currently resting in bed with eyes closed. Will continue to monitor per protocol.
[2019-09-14 07:40] VITALS: BP 125/80
--- NOTE | 2019-09-14 09:27 | NUR ---
SW received an email that this pt will d/c on Thursday. [facility] and is staffing issues and keep putting off the d/c.
--- NOTE | 2019-09-14 11:10 | NUR ---
Jimenez recieved an email today that pt will be picked up at 9am on 09/18. Jimenez also replied to the email providing the phone number and name of his nurse that they requested to complete report with jon at 11:30 am.
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
[2019-09-14 20:49] VITALS: BP 103/79
--- NOTE | 2019-09-15 02:34 | NUR ---
09-14-19 CARE TRANSFERED 1914 OBSERVED PT IN DAY ROOM. 1929 PT SITTING, AAOX2, CALM AND COOPERATIVE THROUGHOUT NURSING ASSESSMENT. PT DENIES ANY PAIN AND SI/SH/HI/AVH. LATER WHEN ASSISTING HIS ROOMMATE PT BECAME VERY IRRITABLE ABOUT HAVING TO SHARE ROOM; WAS ABLE TO REDIRECT PT AND ASSIST HIM IN CALMING DOWN. WHEN DOING NEXT ROUND PT WAS IN BED SUPINE WITH EYES CLOSED RR EVEN AND NONLABORE DON RA. OF NOTE, PLEASE REFER TO NURSING INTERVENTIONS FOR MORE INFORMATION. ZERO ACUTE DISTRESS NOTED. WILL CONTINUE TO MONITOR PER PROTOCOL.
[2019-09-15 07:15] VITALS: BP 125/87
--- NOTE | 2019-09-15 09:41 | NUR ---
0700 ASSUMED CARE OF PATIENT, PATIENT AWAKE IN ROOM AT THAT TIME. PATIENT OUT TO DAYROOM FOR BREAKFAST 100% OF MEAL EATEN. MEDICATIONS TAKEN WHOLE WITHOUT DIFFICULTY. NO C/O PAIN AT THAT TIME. PATIENT SITTING QUIETLY AND COMMUNICATING WELL WITH PEERS. PATIENT DID NOT ATTEND GROUP, PATIENT UP AT NURSES DESK ASKING TO BE LET OUT. ROTOPRINTER EXPLAINED HIS PLANNED DATE OF DC IS THURSDAY. PATIENT STATES "THAT IS NOT ACCEPTABLE, I WILL TALK TO THE DR." WILL CONTINUE TO OBSERVE
--- NOTE | 2019-09-15 15:40 | NUR ---
1520- Property Appraiser heard a call for help near the exit doors. As staff were walking on to the unit Nathan became angry when staff wouldn't let him through the doors. Property Appraiser interviened and asked Nathan to come and talk to calm down. He was oriented to situation and reminded he is set to discharge Thursday. Nathan expressed frustration- "I can[place] go to [place], I'll never get back to [place]. I'm so f*cked." When told that his placement at [facility] was likely temporary he began crying and put his head on the table stating, "I just can't do this any longer. Everyone looks at me like I'm crazy. I know that I did this to myself." When encouraged to find appropriate ways to calm himself down when frustration takes over, patient stated, "I just want to punt a football." He offered greeting card writer to go out and buy him one. When given a list of appropriate options, Nathan elected to take a warm shower and shave. [facility] is currently helping him with this task.
--- NOTE | 2019-09-15 16:10 | NUR ---
SW sent updates to [facility]. D/C is still expected on 09/18 at 9am
[2019-09-15 19:30] VITALS: BP 109/74
--- NOTE | 2019-09-16 01:53 | NUR ---
09-15-19 CARE TRANSFERED AT 1914 OBSERVED PT STANDING IN HALLWAY. 194 PT AAOX1, SKIN W/D, PT WAS CALM AND COOPERATIVE DURING NURSING ASSESSMENT. PT GAIT IS STEADY, PT DENIES ANY PAIN OR SI/SH/HI/VAH AT THIS TIME. DURING SNACK TIME PT WAS LOOKING INTO REFRIGERATOR WHEN ASKED TO STOP BY LOCAL TRUCK DRIVER, PT BECAME IRRITABLE AND AGITATED. PT WAS EASILY REDIRECTED AND THEN MADE THE SELECTION OF VANILLA ICE CREAM AND PT ATE 100%. LATER ASSISTED PT TO BATHROOM AND NOTED YELLOW URINE WITH NO SEDIMENT OR FOUL ODOR; THEN ASSISTED PT INTO CLEAN BRIEFS. LATER DURING ROUNDS NOTED PT SUPINE IN BED WITH EYES CLOSED RESTING PEACEFULLY. OF NOTE, PLEASE REFER TO NURSING INTERVENTIONS FOR MORE INFORMATION. ZERO S/S OF ACUTE DISTRESS NOTED. WILL CONTINUE TO MONITOR PER [facility] PROTOCOL.
[2019-09-16 08:35] VITALS: BP 96/58
--- NOTE | 2019-09-16 09:54 | NUR ---
0700 ASSUMED CARE OF PATIENT, PATIENT IN ROOM AWAKE AT THAT TIME. PATIENT TO DAYROOM AT 0715 AND SITS AT TABLE WITH OTHER PEERS. PATIENT IS CALM AND QUIET. 0805 PATIENT EATING BREAKFAST, EATS 100% OF MEAL. PATIENT TAKES MEDICATION WHOLE WITHOUT DIFFICULTY. PATIENT WAS OBSERVED TRYING TO ASSIST ANOTHER PATIENT WITH BREAKFAST AND ASKED FURNACE TENDER IF FURNACE TENDER COULD HELP THE PATIENT WITH HIS JELLY ON HIS BREAD. PATIENT COMMUNICATES WELL WITH OTHERS AT THAT TIME. 0930 PATIENT UP AT NURSES STATION ASKING TO LEAVE. PATIENT NEEDS CONSTANT ORIENTATION OF HIS ENVIROMENT HE IS FORGETFUL DUE TO HIS TBI. PATIENT DENIES PAIN, LUNG SOUNDS CLEAR, BS ACTIVE. DENIES SI/HI. 0940 PATIENT SLAMS HIS FOLDER DOWN ON TABLE AND FURNACE TENDER ASKS PATIENT TO PLEASE NOT DO THAT. PATIENT APOLIGIZES FOR SLAMING IT ON TABLE. PATIENT STATES "YOU JUST DO NOT UNDERSTAND HOW I FEEL. I JUST WANT TO GET OUT OF HERE". PATIENT UP IN CHAKRABORTY WALKING AND EXIT SEEKING. WILL CONTINUE TO OBSERVE.
--- NOTE | 2019-09-16 10:31 | NUR ---
PATIENT SITS WITH REVIEW ENGINEER AND DEMANDS TO LEAVE USING CURSE WORDS AND UPSET. PATIENT STATES HE HAS A MEETING TOMORROW. PATIENT GETS UP AND TO WEST DOOR EXIT SEEKING STATING HE WILL GO TALK TO THE DR. WILL CONTINUE TO OBSERVE.
--- NOTE | 2019-09-16 10:51 | NUR ---
Nathan wanted to speak with the psychiatrist. The physician was in a meeting. Nathan became angry and kicked the door to the physician's office. The rec therapist pulled Nathan aside to speak with him.
--- NOTE | 2019-09-16 17:35 | NUR ---
1710 PATIENT SITTING AT TABLE EATING WITH OTHERS WHEN HE YELLS OUT TO THE OTHER PATIENT TO0 STOP EATING THAT WAY. THE OTHER PATIENT YELLS BACK ATTEMPTING TO GET UP STATING "I WILL BEAT YOU". SUPERVISOR FRUIT GRADING INTERVENES TO STOP THE YELLING. BOTH PATIENTS CONTINUE TO EXCHANGE CURSE WORDS. PATIENT WAS MOVED TO ANOTHER TABLE, THE SITUATION WAS STOPPED BY DOING SO. WILL CONTINUE TO OBSERVE.
--- NOTE | 2019-09-17 04:57 | NUR ---
Assumed care of pt @ 1900. Pt calm et cooperative this shift. Pt did not take HS meds this shift due to being sedated @ HS. Pt would not awaken to take his meds et shook his head "no" when asked if he could open his eyes to take his medication. Ambulates the halls ad emely with steady gait as pt generally wakes up around 0500 in the morning. VSWNL. Health assessment with no abnormalities noted at present time. Denies SI/HI. Currently resting in bed with eyes open. Will continue to monitor per protocol.
[2019-09-17 08:16] VITALS: BP 121/78
--- NOTE | 2019-09-17 09:41 | NUR ---
ASSUMED CARE AT 0700 THIS MORNING. PT. UP, DRESSED AND IS EXIT SEEKING AT THIS TIME. HE CONTINUES TO SAY THIS IS HIS HOME AWAY FROM HOME, BUT HE NEEDS TO GET OUT AND LOOK FOR HIS CARE. HE STATED HE WOULD RETURN. THIS ROD PILER EXPLAINED THAT HIS WAS IMPOSSIBLE AT THIS TIME AND WALKED WITH HIM AROUND THE UNIT. HE CALMED DOWN AT THAT TIME. HE CONTINUES TO BE EXIT SEEKING AND ANGRY.
[2019-09-17 10:42] VITALS: BP 121/78
[2019-09-17 20:11] VITALS: BP 97/64
[2019-09-18] VITALS (7 sets, daily range): BP systolic 107–109; BP diastolic 74–75
--- NOTE | 2019-09-18 05:19 | NUR ---
Assumed care of pt @ 1900. Pt continues to be argumentative this shift regarding leaving the unit. Pt remains unaware that he has been here for a couple of months without leaving the unit. Pt continues to assert that he has left the unit several times to check on his care et to see his physician outside of the unit. Unable to redirect the patient to comprehend that none of that has happened. Pt has been directed to his "paper" several times regarding where his car is et that it is not in the vicinity. Pt unable to verbalize understanding at the present time. Took medications whole after several prompts to continue to "follow the program" so that he may discharge soon. Ambulates the halls ad emely with steady gait. Pt continues to push the intercom buttons at the front of the halls repeatedly in an attempt to leave the unit. VSWNL. Health assessment with no abnormalities at present time. Denies SI/HI. Currently resting in bed with eyes closed. Will continue to monitor per protocol.
--- NOTE | 2019-09-18 16:01 | NUR ---
Pt unable to participate in group due to cognitive deficit.
--- NOTE | 2019-09-18 18:32 | NUR ---
PT. GIVEN SHOWER THIS EVENING. HIS CLOTHING WAS PUT IN THE WASH MACHINE TO WASH.
--- NOTE | 2019-09-18 18:39 | NUR ---
Nathan was calm this AM. Pt ate all the food that was presented to him. Medications were taken with no resistance. Lungs were clear x2 pedal pulse was strong and heart sound were clear. At one point Nathan was aggitated because he wandted to leave to get his car. Much redirection was given and encouragement that his discharge date is in the Am. Covid test was done inregards to this. At this time Nathan is walking in the halways.
--- NOTE | 2019-09-19 02:31 | NUR ---
Assumed care of patient this pm shift. Patient is irritable this evening. Patient states that he does not want to leave his home and go to [place]. Patient is redirectable. Patient denies hi/si. Patient denies pain. Patient is medication adherent. Patient takes medications whole with fluids. Patient is ambulatory and not a fall risk. Patients gait is steady and balanced. Patients affect is blunted. Patient is alert and oriented to self only. Patients assessment shows clear breath sounds, active bowel sounds and s1 s2 heard with auscultation. We will continue to monitor patient per hospital protocol. Patient is continent of bowel and bladder.
[2019-09-19 07:15] VITALS: BP 134/84
[2019-09-19] MEDS ORDERED: CLARITIN10 MG PO (07:39)
[2019-09-19] MEDS ORDERED: DEPAKOTE SPRIN125 MG PO (07:41)
[2019-09-19] MEDS ORDERED: GEODON 80 MG CA80 MG PO (07:42)
[2019-09-19] MEDS ORDERED: LORAZEPAM 0.50.5 MG PO (07:44)
[2019-09-19] MEDS ORDERED: FOLIC ACID1 MG PO (07:45)
--- NOTE | 2019-09-19 08:49 | NUR ---
LAte entry- Jimenez requested that a COVID 19 test be completed on Thu. Updates were sent on Thursday. JIMENEZ made apcaket and left it on the [facility]. 09/19/19 JIMENEZ spoke with the transporattion for pt and reported this to nursing that they are here and ready for pt in the [address]. JIMENEZ faxed d/c summary ond orders to [facility]. COVID testing results are still pending as they were ordered on Thursday.
[2019-09-19 10:14] VITALS: BP 109/74
[2019-09-19 12:10] VITALS: BP 109/74
--- NOTE | 2019-09-19 13:26 | NUR ---
ANA WAS WALKING IN HALLWAY THIS AM WHEN I CAME ON DUTY. ANA WAS ANGRY BECAUSE HE WAS GOING TO ANOTHER FACILITY. PT SAID' ALL MY FRIENDS ARE [ MEANTING black] IS "AREA IS HOME TO ME". PT WAS DIRECTED TO TALK TO DR AND STAFF WAS SUPPORTIVE OF HOW HE WAS FEELING. ON ASSISTMENT, LUNGS CLEAR X2 HEART SOUNDS CLEAR, PEDAL PULSE STRONG,AND NO EDEMA, DENIES ANY CONSTIPATION AT THIS TIME .ANA WAS COMPLAINING HE WAS NOT GOING TO GO BUT DID NOT GIVE STAFF ANY PROBLEM ABOUT GETING INTO [facility]. I CALLED [facility] @ # [phone] AND I GAVE REPORT TO BI KINSEY RN . ANA'S ATTENDING WILL BE . ANA LEFT [facility] @9:10 AM TO BE TRANSPORTED BY [facility] TO [facility].
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
--- NOTE | 2019-09-21 01:02 | D ---
[facility] [place] [address] DISCHARGE SUMMARY Name: ANA PETTY Room #: 518B-B [facility] IN M.R.#: [id number] Admission: 08/04/19 Attend Phys: Jaison Dias DO Discharge: 09/19/19 Date of : 57 Report #: [id number] THIS REPORT FOR: cc: [facility] - Clinic physician unknown [facility] - Clinic physician unknown Jaison Dias DO ~ THIS REPORT FOR: //name// CC: Jiason Dias [facility] unknown Reese Box DATE OF SERVICE: 09/19/2019 ADDENDUM LABORATORY DATA: Most recent notes from this admission on 09/07, the H and H was 12.7 and 37.7, white count 5.6, platelets 329. Chemistries on 09/07, sodium 139, potassium 4.4, chloride 101, bicarbonate 30, anion gap 8, BUN 27, creatinine 1.0, estimated GFR 75, glucose 80, calcium 9.5. Ammonia level less than 10. On 08/13, toxicology, last Depakote level was 63, ____ reduced it down to 1000 b.i.d. was on 95. COVID-19 PCR done on 09/17 was negative. <ELECTRONICALLY SIGNED> By: Jaison Dias DO 09/21/19 0102 [id number] Jaison Dias, /nt
== END 2019-09-19 09:10 | DRG 884 ==
LOC: SBH
PROVIDERS: Psychiatry & Neurology Psychiatry; ADMIT Psychiatry & Neurology Psychiatry; ATTEND Psychiatry & Neurology Psychiatry
DX: F01.51 Vascular dementia, unspecified severity, with behavioral disturbance (principal); G93.41 Metabolic encephalopathy; F03.91 Unspecified dementia, unspecified severity, with behavioral disturbance; Z60.2 Problems related to living alone; N40.0 Benign prostatic hyperplasia without lower urinary tract symptoms; G89.29 Other chronic pain; F10.11 Alcohol abuse, in remission; F29 Unspecified psychosis not due to a substance or known physiological condition; Z79.899 Other long term (current) drug therapy; Z86.711 Personal history of pulmonary embolism; Z87.820 Personal history of traumatic brain injury; Z03.818 Encounter for observation for suspected exposure to other biological agents ruled out
CPT/HCPCS: 10880